=== PATIENT | male | born 1960 | race African-American/Black ===

== ENCOUNTER → 2017-09-01 | Outpatient (CLI) | payer OTHER ==
[~2017-09-01] MED LIST: ASPIR 8181 MG PO; CENTRUM SILVER1 EAC4 PO; COZAAR 25 MG TA25 M2 PO; IBUPROFEN 200200 M1 PO; KLOR-CON 1010 MEQ PO; LANTUS100 UNIT/M SUBQ; LOPRESSOR50 PO; MAXZIDE-25 MG1 EACH PO; NATURAL LUTEIN20 MG PO; NOVOLOG100 UNIT/1 SUBQ; TRADJENTA5 MG; VITAMIN D1000 UNI1 PO
--- NOTE | 2017-09-04 09:29 | SLEEP ---
[address] [address] SLEEP STUDY REPORT Name: NITA MALIK Room: [facility].#: [id number] Admission: Attend Phys: Elisa Rosales RN Discharge: Date of : 58 Report #: [id number] THIS REPORT FOR: //name// CC: Cee Rosales This study has been reviewed in its entirety by a board certified sleep specialist REFERRING PHYSICIAN: Dr. Cee Lyons and FREEDOM Clements. TYPE OF STUDY: CPAP titration. INDICATION: Known obstructive sleep apnea on a sleep study done on 10/2016 with hypersomnia and fatigue in addition to snoring. METHODS: The following parameters were monitored: Frontal, central and occipital EEG; electro-oculogram; submentalis EMG; nasal and oral airflow; anterior tibialis EMG; body position and electrocardiogram. Additionally, thoracic and abdominal movements were recorded by inductance plethysmography. Oxygen saturation was monitored using pulse oximeter. The tracing was scored using 30-second epochs. Hypopneas were scored per the [employer] definition using the 4% desaturation criteria. SLEEP SUMMARY: Total recording time was 488 minutes. Total sleep time was 366 minutes. Sleep efficiency was 75%. SLEEP STAGING: Stage N1 38.9% of total sleep time, stage N2 60.8% of total sleep time, stage N3 none recorded. Stage REM very minimal at 0.3%. The patient was titrated on a CPAP pressure between 5 and 15 cm of water. It was noted at a pressure of 13 and 14 cm of water, the apnea-hypopnea index was 0. The occasional episodes of desaturation were recorded. It was noted her AHI improved on lower CPAP pressure but the CPAP pressure was increased due to snoring. Average heart rate during the study was noted to be bradycardic at 43.4 per minute. No arrhythmias were recorded. Limb movement index was 25.9. RECOMMENDATIONS: 1. Recommend a trial of CPAP therapy at a pressure of 14 cm of water, with close clinical followup and data download. 2. Recommend maintaining [place] [address] SLEEP STUDY REPORT Name: NITA MALIK Room: [facility]#: [id number] Admission: Attend Phys: Elisa Rosales RN Discharge: Date of : 58 Report #: [id number] 3. Avoid alcohol sedatives, hypnotics close to bedtime. 4. Avoid driving or operating machinery while drowsy. <ELECTRONICALLY SIGNED> By: Mercedes Gibson MD 09/04/17 0929 1106 1200Mercedes Gibson MD /nt
== END ==
LOC: M.SLEEPLAB 08-24 20:00
DX: G47.33 Obstructive sleep apnea (adult) (pediatric) (principal); R53.83 Other fatigue; R06.83 Snoring; R40.0 Somnolence

== ENCOUNTER → 2017-10-27 | Outpatient (CLI) | payer OTHER ==
--- NOTE | 2017-10-27 16:58 | 2DMMODE ---
[place] [address] 2 D/M-MODE ECHOCARDIOGRAM Name: NITA MALIK Room: [facility]#: [id number] Admission: 10/27/17 Attend Phys: Ran De Santiago, Discharge: Date of : 58 Date of Service: 10/27/17 1658 Report #: [id number] THIS REPORT FOR: //name// APPROVED REPORT Study performed: 10/27/2017 13:04:37 EXAM: Comprehensive 2D, Doppler, and color-flow Echocardiogram Patient Location: Out-Patient Status: routine BSA: 2.08 HR: 55 bpm BP: 180/82 mmHg Other Information Study Quality: Good Indications Congestive Heart Failure 2D Dimensions LVEF(%): 74.61 (>50%) IVSd: 15.05 (7-11mm) LVOT Diam: 20.40 (18-24mm) LVDd: 47.25 mm PWd: 12.61 (7-11mm) Ascending Ao: 29.40 (22-36mm) LVDs: 26.71 (25-40mm) Aortic Root: 27.82 mm Mederos's LVEF: 74.61 % Volumes Left Atrial Volume (Systole) LA ESV Index: 19.00 mL/m2 Aortic Valve AoV Peak Ronak.: 1.59 m/s AO Peak Gr.: 10.10 mmHg LVOT Max P.99 mmHg AO Mean Gr.: 5.61 mmHg LVOT Mean P.09 mmHg LVOT Max V: 1.00 m/s AO V2 VTI: 35.61 cm LVOT Mean V: 0.66 m/s NONA (VTI): 2.35 cm2 LVOT V1 VTI: 25.65 cm Mitral Valve E/A Ratio: 3.14 MV Decel. Time: 178.19 [place] [address] 2 D/M-MODE ECHOCARDIOGRAM Name: NITA MALIK Room: [facility]#: [id number] Admission: 10/27/17 Attend Phys: Ran De Santiago, Discharge: Date of : 58 Date of Service: 10/27/17 1658 Report #: [id number] MV E Max Ronak.: 1.40 m/s MV PHT: 51.67 ms MVA (PHT): 4.26 cm2 TDI E/Lateral E': 15.56 E/Medial E': 20.00 Medial E' Ronak.: 0.07 m/s Lateral E' Ronak.: 0.09 m/s Pulmonary Valve PV Peak Ronak.: 1.27 m/s PV Peak Gr.: 6.46 mmHg Tricuspid Valve TR Peak Gr.: 36.45 mmHg RVSP: 41.45 mmHg Left Ventricle The left ventricle is normal size. There is normal LV segmental wall motion. Moderate concentric left ventricular hypertrophy. Left ventricular systolic function is normal. The left ventricular ejection fraction is within the normal range. LVEF is 60-65%. The left ventricular diastolic function is normal. Right Ventricle The right ventricle is normal size. The right ventricular systolic function is normal. Atria The left atrium size is normal. The right atrium size is normal. Aortic Valve Mild aortic valve sclerosis. No aortic regurgitation is present. There is no aortic valvular stenosis. Mitral Valve The mitral valve is normal in structure. Mild mitral regurgitation. No evidence of mitral valve stenosis. Tricuspid Valve The tricuspid valve is normal in structure. Mild to moderate tricuspid regurgitation. The RVSP is _41.5 mmHg. Pulmonic Valve The pulmonary valve is normal in structure. Mild [place] [address] 2 D/M-MODE ECHOCARDIOGRAM Name: HELENANITA Room: [facility]#: [id number] Admission: 10/27/17 Attend Phys: Ran De Santiago, Discharge: Date of : 58 Date of Service: 10/27/17 1658 Report #: [id number] Great Vessels The aortic root is normal in size. IVC is dilated and collapses >50% with inspiration. Pericardium There is no pericardial effusion. <Conclusion> The left ventricle is normal size. Moderate concentric left ventricular hypertrophy. Left ventricular systolic function is normal. The left ventricular ejection fraction is within the normal range. LVEF is 60-65%. The left ventricular diastolic function is normal. The right ventricle is normal size. The left atrium size is normal. Mild aortic valve sclerosis. No aortic regurgitation is present. There is no aortic valvular stenosis. The mitral valve is normal in structure. Mild mitral regurgitation. The tricuspid valve is normal in structure. Mild to moderate tricuspid regurgitation. The RVSP is _41.5 mmHg. IVC is dilated and collapses >50% with inspiration. There is no pericardial effusion. There is normal LV segmental wall motion. <ELECTRONICALLY SIGNED> By: Jayce Galvan MD, FACC 10/27/178 57 57 Jayce Galvan MD, FACC /INF
== END ==
LOC: M.CRD 12:50
DX: I50.32 Chronic diastolic (congestive) heart failure (principal); Z88.6 Allergy status to analgesic agent; Z88.8 Allergy status to other drugs, medicaments and biological substances

== ENCOUNTER → 2018-02-25 | Outpatient (CLI) | payer OTHER ==
[2018-02-25 08:10] LABS: ABSOLUTE EOSINOPHILS 0.1 thou/uL (0.0-0.7); ABSOLUTE LYMPHOCYTES 1.1 thou/uL (0.8-5.3); ABSOLUTE MONOCYTES 0.5 thou/uL (0.0-1.2); ABSOLUTE NEUTROPHILS 3.3 thou/uL (1.6-8.1); BASOPHILS 0.6 %; EOSINOPHILS 1.5 %; HEMATOCRIT 38.3 % (42.0-52.0); HEMOGLOBIN 12.6 gm/dL (14.0-18.0); LYMPHOCYTES 22.5 %; MCH 26.6 pg (26.0-34.0); MCHC 32.8 g/dL (28.0-37.0); MCV 81.2 fL (80.0-100.0); MONOCYTES 10.5 %; MPV 8.7 fl. (7.2-11.1); NUCLEATED RBCS 0 /100WBC; PLATELET COUNT* 233 thou/uL (150-400); POLYS 64.9 %; RBC 4.72 mil/uL (4.50-6.00)
[2018-02-25 08:20] LABS: ALBUMIN 2.6 g/dL (3.4-5.0); ALKALINE PHOSPHATASE 85 U/L (46-116); ANION GAP 8 mmol/L (7-16); BUN 26 mg/dL (7-18); CALCIUM 8.2 mg/dL (8.5-10.1); CHLORIDE 106 mmol/L (98-107); CHOLESTEROL 219 mg/dL (<200); CO2 27 mmol/L (21-32); CREATININE 1.1 mg/dL (0.6-1.3); GLUCOSE 107 mg/dL (70-99); HDL CHOLESTEROL 49 mg/dL (>40); LDL CHOLESTEROL 149 mg/dL (<100); POTASSIUM 3.5 mmol/L (3.5-5.1); SGOT 16 U/L (15-37); SGPT 17 U/L (30-65); SODIUM 141 mmol/L (136-145); TC:HDL 4.5 Ratio (Not establshd); TOTAL BILIRUBIN 0.1 mg/dL (<0.1-1.0); TOTAL PROTEIN 6.7 g/dL (6.4-8.2); TRIGLYCERIDE 105 mg/dL (<150); VLDL 21 mg/dL (<40)
[2018-02-25 08:22] LABS: SERUM ASSESSMENT Clear
[2018-02-26 07:06] LABS: GLYCOHEMOGLOBIN (HGB A1C) 13.9 % (4.8-5.6)
== END ==
LOC: M.LAB 07:42 → M.RAD 07:42
PROVIDERS: Family Medicine
DX: E11.29 Type 2 diabetes mellitus with other diabetic kidney complication (principal); I11.0 Hypertensive heart disease with heart failure; I50.32 Chronic diastolic (congestive) heart failure; E78.2 Mixed hyperlipidemia; R80.9 Proteinuria, unspecified; Z79.4 Long term (current) use of insulin

== ENCOUNTER → 2018-09-11 | Outpatient (CLI) | payer OTHER ==
[2018-09-11 10:08] LABS: ALBUMIN 2.9 g/dL (3.4-5.0); ALKALINE PHOSPHATASE 108 U/L (46-116); ANION GAP 8 mmol/L (7-16); BUN 27 mg/dL (7-18); CALCIUM 8.5 mg/dL (8.5-10.1); CHLORIDE 101 mmol/L (98-107); CHOLESTEROL 201 mg/dL (<200); CO2 27 mmol/L (21-32); CREATININE 1.4 mg/dL (0.6-1.3); GLUCOSE 411 mg/dL (70-99); HDL CHOLESTEROL 59 mg/dL (>40); LDL CHOLESTEROL 115 mg/dL (<100); POTASSIUM 4.1 mmol/L (3.5-5.1); SGOT 16 U/L (15-37); SGPT 27 U/L (30-65); SODIUM 136 mmol/L (136-145); TC:HDL 3.4 Ratio (Not establshd); TOTAL BILIRUBIN 0.3 mg/dL (<0.1-1.0); TOTAL PROTEIN 6.4 g/dL (6.4-8.2); TRIGLYCERIDE 138 mg/dL (<150); VLDL 28 mg/dL (<40)
[2018-09-11 10:49] LABS: SERUM ASSESSMENT Clear
[2018-09-12 06:28] LABS: GLYCOHEMOGLOBIN (HGB A1C) 17.2 % (4.8-5.6)
== END ==
LOC: M.LAB 06:59
PROVIDERS: Family Medicine
DX: E11.42 Type 2 diabetes mellitus with diabetic polyneuropathy (principal); E78.2 Mixed hyperlipidemia; Z79.4 Long term (current) use of insulin

== ENCOUNTER → 2018-11-24 | Outpatient (CLI) | payer OTHER ==
--- NOTE | 2018-11-24 13:37 | 2DMMODE ---
[place] [address] 2 D/M-MODE ECHOCARDIOGRAM Name: HELENANITA Room: [facility]#: [id number] Admission: 11/24/18 Attend Phys: Ran De Santiago, Discharge: Date of : 58 Date of Service: 11/24/18 1337 Report #: [id number] THIS REPORT FOR: //name// APPROVED REPORT Study performed: 11/24/2018 07:55:20 EXAM: Comprehensive 2D, Doppler, and color-flow Echocardiogram Patient Location: Out-Patient BSA: 2.09 HR: 58 bpm BP: 149/60 mmHg Other Information Study Quality: Excellent Indications Congestive Heart Failure 2D Dimensions IVSd: 16.73 (7-11mm) LVOT Diam: 20.39 (18-24mm) LVDd: 47.52 mm PWd: 15.32 (7-11mm) Ascending Ao: 31.62 (22-36mm) LVDs: 26.33 (25-40mm) Aortic Root: 28.56 mm Volumes Left Atrial Volume (Systole) LA ESV Index: 27.10 mL/m2 Aortic Valve AoV Peak Ronak.: 1.59 m/s AO Peak Gr.: 10.10 mmHg LVOT Max P.32 mmHg AO Mean Gr.: 5.39 mmHg LVOT Mean P.56 mmHg LVOT Max V: 0.91 m/s AO V2 VTI: 33.95 cm LVOT Mean V: 0.57 m/s NONA (VTI): 2.26 cm2 LVOT V1 VTI: 23.46 cm Mitral Valve E/A Ratio: 3.07 MV Decel. Time: 200.98 ms MV E Max Ronak.: 1.33 m/s MV PHT: 58.28 ms MVA (PHT): 3.77 [place] [address] 2 D/M-MODE ECHOCARDIOGRAM Name: NITA MALIK Room: [facility]#: [id number] Admission: 11/24/18 Attend Phys: Ran De Santiago, Discharge: Date of : 58 Date of Service: 11/24/18 1337 Report #: [id number] TDI E/Lateral E': 19.00 E/Medial E': 22.17 Medial E' Ronak.: 0.06 m/s Lateral E' Ronak.: 0.07 m/s Pulmonary Valve PV Peak Ronak.: 1.06 m/s PV Peak Gr.: 4.50 mmHg Tricuspid Valve RAP Estimate: 5.00 mmHg TR Peak Gr.: 31.88 mmHg RVSP: 36.88 mmHg PA Pressure: 36.88 mmHg Left Ventricle The left ventricle is normal size. There is normal LV segmental wall motion. Moderate concentric left ventricular hypertrophy. Left ventricular systolic function is normal. The left ventricular ejection fraction is within the normal range. LVEF is 65-70%. The left ventricular diastolic function is normal. Right Ventricle The right ventricle is normal size. The right ventricular systolic function is normal. Atria The left atrium size is normal. The right atrium size is normal. Aortic Valve The aortic valve is normal in structure. No aortic regurgitation is present. There is no aortic valvular stenosis. Mitral Valve The mitral valve is normal in structure. Mild mitral regurgitation. No evidence of mitral valve stenosis. Tricuspid Valve The tricuspid valve is normal in structure. Mild to moderate tricuspid regurgitation. estimate pa pressure 45 mm Hg Pulmonic Valve The pulmonary valve is normal in structure. There is no pulmonic valvular regurgitation[place] [address] 2 D/M-MODE ECHOCARDIOGRAM Name: NITA MALIK Room: [facility]#: [id number] Admission: 11/24/18 Attend Phys: Ran De Santiago, Discharge: Date of : 58 Date of Service: 11/24/18 1337 Report #: [id number] The aortic root is normal in size. IVC is normal in size and collapses >50% with inspiration. Pericardium There is no pericardial effusion. <Conclusion> Moderate concentric left ventricular hypertrophy. LVEF is 65-70%. Mild mitral regurgitation. Mild to moderate tricuspid regurgitation. estimate pa pressure 45 mm Hg <ELECTRONICALLY SIGNED> By: Nita Winters MD, [facility] 11/24/18 1337 133 133 Nita Winters MD, [facility] /INF
== END ==
LOC: M.CRD 07:11
DX: I08.1 Rheumatic disorders of both mitral and tricuspid valves (principal)

== ENCOUNTER → 2018-11-25 | Outpatient (CLI) | payer OTHER ==
[2018-11-25 12:00] LABS: CREATININE 1.6 mg/dL (0.6-1.3); POTASSIUM 4.4 mmol/L (3.5-5.1)
== END ==
LOC: M.LAB 11:29
PROVIDERS: Registered Nurse
DX: I50.32 Chronic diastolic (congestive) heart failure (principal)

== ENCOUNTER → 2018-12-08 | Outpatient (CLI) | payer OTHER | LOC: M.ULTRA 07:21 | DX: I10 Essential (primary) hypertension (principal); N28.1 Cyst of kidney, acquired ==

== ENCOUNTER → 2019-01-18 | Outpatient (CLI) | payer OTHER | LOC: M.ULTRA 07:10 | DX: R09.89 Other specified symptoms and signs involving the circulatory and respiratory systems (principal) ==

== ENCOUNTER → 2019-03-02 | Outpatient (CLI) | payer OTHER ==
[2019-03-02 08:52] LABS: ALBUMIN 3.5 g/dL (3.4-5.0); CALCIUM 8.8 mg/dL (8.5-10.1); CREATININE 1.4 mg/dL (0.6-1.3); POTASSIUM 3.6 mmol/L (3.5-5.1); TOTAL BILIRUBIN 0.3 mg/dL (<0.1-1.0); TOTAL PROTEIN 6.9 g/dL (6.4-8.2)
[2019-03-03 03:08] LABS: GLYCOHEMOGLOBIN (HGB A1C) 12.6 % (4.8-5.6)
== END ==
LOC: M.LAB 07:55
PROVIDERS: Family Medicine
DX: E11.319 Type 2 diabetes mellitus with unspecified diabetic retinopathy without macular edema (principal); E11.21 Type 2 diabetes mellitus with diabetic nephropathy

== ENCOUNTER → 2019-09-05 | Outpatient (CLI) | payer OTHER ==
[2019-09-05 07:56] LABS: ALBUMIN 3.2 g/dL (3.4-5.0); ALKALINE PHOSPHATASE 94 U/L (46-116); ANION GAP 9 mmol/L (7-16); BUN 32 mg/dL (7-18); CALCIUM 8.2 mg/dL (8.5-10.1); CHLORIDE 105 mmol/L (98-107); CHOLESTEROL 166 mg/dL (<200); CO2 29 mmol/L (21-32); CREATININE 1.5 mg/dL (0.6-1.3); GLUCOSE 78 mg/dL (70-99); HDL CHOLESTEROL 53 mg/dL (>40); LDL CHOLESTEROL 101 mg/dL (<100); POTASSIUM 3.2 mmol/L (3.5-5.1); SGOT 21 U/L (15-37); SGPT 26 U/L (30-65); SODIUM 143 mmol/L (136-145); TC:HDL 3.1 Ratio (Not establshd); TOTAL BILIRUBIN 0.4 mg/dL (<0.1-1.0); TOTAL PROTEIN 7.2 g/dL (6.4-8.2); TRIGLYCERIDE 64 mg/dL (<150); VLDL 13 mg/dL (<40)
[2019-09-05 08:33] LABS: SERUM ASSESSMENT Clear
[2019-09-05 23:07] LABS: GLYCOHEMOGLOBIN (HGB A1C) 13.1 % (4.8-5.6)
== END ==
LOC: M.LAB 07:23
PROVIDERS: Family Medicine
DX: E11.29 Type 2 diabetes mellitus with other diabetic kidney complication (principal); R80.9 Proteinuria, unspecified; Z79.4 Long term (current) use of insulin

== ENCOUNTER → 2019-09-15 | Outpatient (CLI) | payer OTHER | LOC: M.RAD 15:30 | DX: M50.11 Cervical disc disorder with radiculopathy, high cervical region (principal); M48.02 Spinal stenosis, cervical region; M12.88 Other specific arthropathies, not elsewhere classified, other specified site ==

== ENCOUNTER → 2019-09-19 | Outpatient (CLI) | payer OTHER ==
[2019-09-19 09:01] LABS: CALCIUM 8.7 mg/dL (8.5-10.1); CREATININE 1.3 mg/dL (0.6-1.3); POTASSIUM 3.9 mmol/L (3.5-5.1)
== END ==
LOC: M.LAB 08:39
PROVIDERS: Internal Medicine Cardiovascular Disease
DX: I50.32 Chronic diastolic (congestive) heart failure (principal)

== ENCOUNTER → 2019-09-23 | Outpatient (CLI) | payer OTHER | LOC: M.MRI 09:48 | DX: M50.11 Cervical disc disorder with radiculopathy, high cervical region (principal); M50.31 Other cervical disc degeneration, high cervical region; M48.02 Spinal stenosis, cervical region ==

== ENCOUNTER → 2019-10-11 | Outpatient (CLI) | payer OTHER ==
[~2019-10-11] MED LIST changes: +ASA81BEC PO; +CARVEDILOL12.5 MG PO; +CATAPRES-TTS 20.2 MG TRANSDERM; +HYDRALAZINE 5050 MG PO; +HYDROCODON-ACE1 EAC7 PO; +KLOR-CON 10 ER10 MEQ PO; +LASIX 80 MG TAB80 MG PO; +LEXAPRO 10 MG T10 M1 PO; +LIPITOR 40 MG T40 M1 PO; +MEDROLDOSEPACK PO; +METOLAZONE 5 MG5 MG PO; +NEURONTIN 300300 M1 PO; +NEURONTIN100 MG PO; +NIFEDIPINE20 MG PO; +TERAZOSIN HCL5 MG PO
--- NOTE | 2019-10-13 09:31 | PAINCON ---
[address] [address] PAIN MANAGEMENT CONSULTATION Name: NITA MALIK Dionicio Room: [facility].#: [id number] Admission: 10/11/19 Attend Phys: Campbell Barraza MD Discharge: Date of : 58 Report #: [id number] THIS REPORT FOR: //name// cc: Karen Nelson Linda J. DO ~ THIS REPORT FOR: //name// CC: Karen Barraza DATE OF SERVICE: 10/11/2019 CHIEF COMPLAINT: "Pain in my left arm, which has gotten worse over the last couple of months." HISTORY: The patient is a 59-year-old gentleman who has been referred to the Pain Clinic for evaluation of left arm pain. The patient states that he has noticed a worsening of his pain over the last few months. He does work at the hospital. He does do quite a bit of heavy lifting. Notes that after lifting and throwing some items in the trash and moving them, he started to experience more pain and discomfort involving the left shoulder initially. He then started to experience pain, which radiated down into his hand, into his arm, forearm and down into his fingers. He does note some weakness involving his hand on the left side. He notes that if he extends his arm out as though he was working on a computer using a mouse, there is worsening of the pain. Notes increasing pain when he extends his arm out and is driving. Finds it is very difficult to get into a comfortable position at night. Often times, he lies on his right side and if his head is tilted toward the right and his arm is pulled down toward his waist, he has less pain and discomfort. He has found it quite problematic to get sleep over the last 2 months. He finds that the numbness is quite concerning. He rates it as an 8/10. He has tried nonsteroidal anti-inflammatory medications of ibuprofen. He did not notice a significant improvement in his pain. He has not had surgery. He has not had trauma to the neck area. He has not taken any pain medications. lovastatin and niacin. CURRENT MEDICATIONS: Potassium 10 mEq 3 per day, aspirin 81 mg, carvedilol 2 mg, Lexapro 10 mg, Lasix 80 mg, Neurontin 100 mg t.i.d., hydralazine 100 mg t.i.d., insulin 100 units sliding scale, metolazone 5 mg 2 tablets weekly, nifedipine ER 60 mg b.i.d., Zoloft 50 mg, Cialis 20 mg p.r.n. and terazosin. PAST MEDICAL HISTORY: Anxiety, diabetes, hyperlipidemia, hypertension, myocardial infarction, pneumonia, proteinuria, right bundle-branch block, type 2 diabetes with polyneuropathy, [place] [address] PAIN MANAGEMENT CONSULTATION Name: NITA MALIK Dionicio Room: [facility]#: [id number] Admission: 10/11/19 Attend Phys: Campbell Barraza MD Discharge: Date of : 58 Report #: [id number] PAST SURGICAL HISTORY: Tonsillectomy in 1979. 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 REVIEW OF SYSTEMS: Generally good health, retinopathy, swelling of the feet, joint pain, muscle cramps, and back pain. LABORATORY DATA: MRI of the cervical spine dated 09/23/2019: 1. C3-C4 moderate degenerative disk disease. Moderate broad-based disk bulge with disk osteophyte complex abutting the ventral aspect of the cord causing mild diffuse flattening of the spinal cord and resulting in mild spinal stenosis with the AP diameter of the spinal cord, measuring 9 mm. Moderate left and mild right C4 neural foraminal narrowing secondary to the left disk aspect complex. 2. C4-C5, zrzk-[id number]-[id number] degenerative disk disease. Mild broad-based disk bulge. No spinal stenosis. Mild narrowing of the lateral recess and [id number]-rz-woptyhro C5 neural foraminal narrowing bilaterally. 3. C5-C6, [id number]-[id number] degenerative disk disease. Mild broad-based disk bulge with moderate left paracentral disk protrusion. This results in severe narrowing of the left lateral recess and left C6 neural foraminal narrowing, compression of the left C6 nerve root. Mild right C6 neural foraminal narrowing as well. 4. Mild degenerative disk disease. Mild broad-based disk bulge. No spinal stenosis or neural foraminal narrowing. 5. C7/T1 mild degenerative disk disease. Minimal disk bulge. No spinal stenosis or neural foraminal narrowing. 6. X-ray cervical dated 09/15/2019. Examination of cervical spine 7 views including flexion and extension. Impression: Moderate degenerative spondylosis, especially at C3-C4. There is disk space narrowing and degenerative spondylosis, especially at C3-C4. PAIN CLINIC ASSESSMENT AND PQRS: 1. Osteoarthritis. The patient has some osteoarthritic changes in his neck. He is not being treated for rheumatoid arthritis. 2. Height 5 feet 10 inches, weight 195 pounds, BMI is 28. 3. Vital signs: Blood pressure 196/70, heart rate 67, respiratory rate 16, room air saturation 96%, and temperature is 98.0. 4. Pain intensity 8/10. 5. Fall history: The patient has not fallen in the last 3 months. 6. Blood thinner. The patient is not on a blood thinning medication. 7. Hypertension. The patient is being treated with multiple agents for hypertension. 8. Opioids greater than 6 weeks. The patient is not on an opioid regimen. 9. Risk assessment tool, low for opioid use. 10. Functional assessment tool reviewed. 11. Recreational drug use: The patient denies. 12. Tobacco: [place] [address] PAIN MANAGEMENT CONSULTATION Name: HELENANITA Room: [facility]#: [id number] Admission: 10/11/19 Attend Phys: Campbell Barraza MD Discharge: Date of : 58 Report #: [id number] PHYSICAL EXAMINATION: GENERAL: The patient is a well-developed, well-nourished black male, appears his stated age. He is alert and oriented x 3. His affect is appropriate. Speech is fluent. HEENT: Normocephalic, atraumatic. Extraocular eye muscles intact. Sclerae nonicteric. Mucous membranes are moist. NECK: Without adenopathy or JVD. The patient has pain in the left shoulder with pain that radiates down into his left arm. Left lateral bending causes increased pain. Positive Spurling maneuver. The patient notes some decreased pain with rightward bending of his neck. He complains of pain that is radiating down the shoulder, arm, forearm and down into his fingers. States that his fingers are numb. Radiochemical Technician strength 5-/5 for the left side, 5/5 for the tattoo identifier strength on the right. ABDOMEN: Nontender. EXTREMITIES: Lower extremity muscle strength judged to be 5/5 for the major muscle groups in the lower extremity. IMPRESSION: 1. Cervical radiculopathy involving the left arm. 2. Left ventricular hypertrophy history. 3. Chronic diastolic heart failure, should be those also things that are included. RECOMMENDATIONS: We discussed treatment options with the patient. The patient's MRI was reviewed with him in detail. A model was used to indicate the area of probable pathology. The patient states that he understands. He feels that his pain is quite problematic. It is significantly interrupting his daily living. He is unable to sleep well. Pain is rated as an 8/10. At this point, we have discussed the options. Oftentimes cervical epidural steroid injections can be helpful. We will try the most conservative approach. We have discussed the problems with steroids medication. They can elevate blood sugars. They can also decrease one's immunity. We will increase the patient's gabapentin from 100 mg daily to 300 mg t.i.d. We will also have the patient try a Medrol Dosepak. This may cause some elevation in blood sugar. The patient will monitor his blood sugars and keep him within a narrow range. The patient has been treated for elevated blood pressures. His diastolic was at about 190. We would recommend that the patient continue to monitor this and strive to get a more tighter range. We will have the patient try the conservative approach. Possibility of a cervical epidural steroid injection is an option. We will have to discuss the possible complications of cervical epidural injection. Given the COVID-19 pandemic, careful thought will be placed upon how to proceed whether or not this would be reasonable at this juncture: The patient is a school custodian. If he gets the injection, I would recommend that he not worked in the COVID-19 area at least initially after the injection. [address] [place] [address] PAIN MANAGEMENT CONSULTATION Name: NITA MALIK Room: [facility] BernieChristiano#: [id number] Admission: 10/11/19 Attend Phys: Campbell Barraza MD Discharge: Date of : 58 Report #: [id number] We would like to thank you for letting us participate in his care. We hope he continues to improve. <ELECTRONICALLY SIGNED> By: Campbell Barraza MD 10/13/19 0931 1455 1634N. Rajendra Barraza MD /nt
== END ==
LOC: M.PC 04:21
DX: M79.602 Pain in left arm (principal); M54.12 Radiculopathy, cervical region; I50.32 Chronic diastolic (congestive) heart failure; I10 Essential (primary) hypertension; M51.34 Other intervertebral disc degeneration, thoracic region; M50.33 Other cervical disc degeneration, cervicothoracic region; M48.03 Spinal stenosis, cervicothoracic region; M50.20 Other cervical disc displacement, unspecified cervical region; Z79.899 Other long term (current) drug therapy

== ENCOUNTER → 2019-11-15 | Outpatient (CLI) | payer OTHER ==
[~2019-11-15] MED LIST changes: +NEURONTIN 300M300 M2 PO
== END | disposition home or self-care (01) ==
LOC: M.PC 04:18
DX: M54.12 Radiculopathy, cervical region (principal); G89.29 Other chronic pain; I11.0 Hypertensive heart disease with heart failure; I50.32 Chronic diastolic (congestive) heart failure; E11.42 Type 2 diabetes mellitus with diabetic polyneuropathy; E78.2 Mixed hyperlipidemia; F41.9 Anxiety disorder, unspecified; I25.2 Old myocardial infarction; G47.33 Obstructive sleep apnea (adult) (pediatric); Z98.890 Other specified postprocedural states; Z79.899 Other long term (current) drug therapy; Z87.891 Personal history of nicotine dependence; Z88.8 Allergy status to other drugs, medicaments and biological substances; Z79.4 Long term (current) use of insulin

== ENCOUNTER 2019-11-21 07:12 | Inpatient (IN) | payer OTHER ==
[~2019-11-21] VITALS: Ht 175.3 cm; Wt 86.2 kg
--- NOTE | ~2019-11-21 | CON ---
[address] [address] CONSULTATION Name: NITA MALIK Dionicio Room: [address] ADM IN M.R.#: [id number] Admission: 11/21/19 Attend Phys: Josh Craft MD Discharge: Date of : 58 Report #: [id number] THIS REPORT FOR: //name// cc: Karen Nelson Linda J. DO ~ THIS REPORT FOR: //name// CC: Josh Nelson DATE OF SERVICE: 11/22/2019 NEPHROLOGY CONSULTATION CONSULTING PHYSICIAN: Josh Craft MD REASON FOR NEPHROLOGY CONSULTATION: Acute kidney injury on chronic kidney disease stage 3. REASON FOR ADMISSION: Hyperglycemia and dizziness. HISTORY OF PRESENT ILLNESS: This is a 59-year-old male with past medical history of diabetes type 2 for the last 30 years, which has not been controlled; history of congestive heart failure, but his ejection fraction was 65-70% in 11/2018 with no diastolic dysfunction and moderate pulmonary hypertension, RVSP of 45 mmHg; hypertension; he reports that he does have diabetic retinopathy. 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 Ended up coming to the ER where he was found to have a blood glucose of 1000. His creatinine was 2.1 and his sodium was 119 in the presence of that hyperglycemia. His hemoglobin A1c was found to be 15.5. He was found to be in the hyperosmolar state. There was no evidence of ketoacidosis and he was started on IV fluids. His sugars improved to 300s-400s this morning, sodium within normal range. He also uses Excedrin at home every now and then. He does take heavy doses of Lasix 80 mg twice a day and metolazone 5 mg twice a week and I am not so sure why he does that. He does follow with Dr. Nelson who is his PCP for his blood glucose and other general medical problems. Another problem is that his blood pressure has been running high and it seems like he has chronic hypertension, which is not controlled. He does have to do a better job watching his sodium intake. Renal ultrasound was unremarkable. His creatinine is better today at 1.4. ALLERGIES: NIACIN AND LOVASTATIN. REVIEW OF SYSTEMS: As mentioned in history of present illness, otherwise 10-point review of systems is negative. There are no urinary problems. No [place] [address] CONSULTATION Name: NITA MALIK Room: [address] IN [facility]#: [id number] Admission: 11/21/19 Attend Phys: Josh Craft MD Discharge: Date of : 58 Report #: [id number] FAMILY HISTORY: No history of kidney disease in the family, but there is history of diabetes in the family. HOME MEDICATIONS: Include potassium chloride. He is on aspirin, carvedilol, nifedipine, hydralazine, atorvastatin, terazosin, metolazone 5 mg twice a week, citalopram, Lasix 80 mg twice a day, clonidine, insulin lispro. He is on gabapentin, hydrocodone. PAST MEDICAL AND SURGICAL HISTORY: Includes diabetes, hypertension. He has chronic kidney disease and seems like he has chronic kidney disease stage 3. His creatinine in the past has been 1.3-1.6. History of congestive heart failure, but his ejection fraction was 65-70% in November of last year with moderate pulmonary hypertension with no evidence of diastolic dysfunction, history of tonsillectomy. FAMILY HISTORY: As mentioned above. SOCIAL HISTORY: He lives at home. Does not smoke or drink alcohol or use illicit drugs. PHYSICAL EXAMINATION: VITAL SIGNS: Blood pressure is 204/66. He was afebrile at 36.2, his pulse rate was 50. His respiratory rate was 14. His pulse ox 98%. He was on room air. GENERAL: He is awake and alert and oriented x 3. HEAD AND EYES: Atraumatic, normocephalic. EARS, NOSE, AND THROAT: Normal ears and nose. Mucous membranes are moist. NECK: No JVD. CHEST: Bilateral clear to auscultation. No crackles or wheezing. CARDIOVASCULAR: S1, S2 normal. No murmurs. ABDOMEN: Soft, nondistended, nontender. Bowel sounds are present. LOWER EXTREMITIES: There is no lower extremity edema. NEUROLOGIC: Gross neurological function is intact. PSYCHIATRIC: Mood and affect seem to be normal. LABORATORY DATA: His hemoglobin is 14.3. Sodium is 135, potassium is 4.0, creatinine is 1.4 and hemoglobin A1c was 15.5. Other labs are reviewed. IMAGING: Head MRI, renal ultrasound, head CT and chest x-ray were reviewed. ASSESSMENT: 1. Acute kidney injury on chronic kidney disease stage 3 in the setting of heavy doses of diuretic use at home, Lasix and metolazone; dehydration and hyperosmolar state because of hyperglycemia. Renal imaging was unremarkable. UA showed 1+ protein with trace blood, so no significant hematuria. 2. Uncontrolled diabetes. The patient presented with [place] [address] CONSULTATION Name: NITA MALIK Room: [address]#: [id number] Admission: 11/21/19 Attend Phys: Josh Craft MD Discharge: Date of : 58 Report #: [id number] Hemoglobin A1c 15.5. Primary team is treating that. 3. Uncontrolled hypertension, seems like this is chronic uncontrolled hypertension. He has had multiple blood pressure medications at home. 4. History of hyperlipidemia. 5. Dehydration. 6. History of congestive heart failure, but ejection fraction was normal last year 65-70% with moderate pulmonary hypertension with 45 mmHg RVSP and no diastolic dysfunction and he is on heavy diuretics. He is on big doses of diuretics at home. 7. Dizziness could have been because of high blood pressure as well as high blood glucose. Primary team is investigating that. PLAN: 1. Renal ultrasound was normal. Noted plans for checking renal artery Doppler, which is not a bad idea. 2. I have increased his hydralazine to 100 mg 3 times a day and monitor blood pressure on rest of the blood pressure medications, he has been having bradycardia, should be careful with clonidine. 3. He needs good diabetic control and educated him about that. We will defer to primary team after this and he might need an Endocrinology referral later on. 4. Hold all his diuretics and no need for IV fluids because he is going to eat and drink. 5. Encouraged him to follow a low-sodium diet and avoid NSAIDs because he does take Excedrin at home and encouraged him to follow up with us as an outpatient in about 3-4 weeks after discharge. Thank you for this consultation. We will continue to follow with you. Discussed with the patient and the patient's nurse. By: [id number] Waddell MD /nt
[2019-11-21 07:18] VITALS: BP 184/74
--- NOTE | 2019-11-21 08:16 | NUR ---
DIFFICULT TO OBTAIN IV ACCESS. IV NURSE CALLED FOR ASSIST
[2019-11-21 08:18] LABS: APTT 24.3 Seconds (25.0-31.3); PROTIME 10.5 Seconds (9.20-11.50)
[2019-11-21 08:20] LABS: CALCIUM 8.5 mg/dL (8.5-10.1); CREATININE 2.1 mg/dL (0.6-1.3); POTASSIUM 4.7 mmol/L (3.5-5.1)
[2019-11-21 08:27] LABS: ALBUMIN 3.1 g/dL (3.4-5.0); TOTAL BILIRUBIN 0.4 mg/dL (<0.1-1.0); TOTAL PROTEIN 7.5 g/dL (6.4-8.2)
[2019-11-21 08:34] LABS: ABSOLUTE LYMPHOCYTES 0.8 thou/uL (0.8-5.3); ABSOLUTE MONOCYTES 0.6 thou/uL (0.0-1.2); ABSOLUTE NEUTROPHILS 7.1 thou/uL (1.6-8.1); BASOPHILS 0.1 %; EOSINOPHILS 0.3 %; HEMATOCRIT 46.9 % (42.0-52.0); HEMOGLOBIN 15.3 gm/dL (14.0-18.0); LYMPHOCYTES 9.1 %; MCH 26.7 pg (26.0-34.0); MCHC 32.6 g/dL (28.0-37.0); MCV 81.7 fL (80.0-100.0); MONOCYTES 6.7 %; MPV 9.7 fl. (7.2-11.1); NUCLEATED RBCS 0 /100WBC; PLATELET COUNT* 201 thou/uL (150-400); POLYS 83.8 %; RBC 5.74 mil/uL (4.50-6.00); RDW-CV 13.2 % (10.5-14.5); WBC 8.4 thou/uL (4.0-11.0)
[2019-11-21 08:44] LABS: URINE BILIRUBIN NEGATIVE (Negative); URINE BLOOD TRACE (Negative); URINE CLARITY CLEAR; URINE COLOR YELLOW; URINE GLUCOSE-RANDOM 3+ (Negative); URINE KETONES NEGATIVE (Negative); URINE LEUKOCYTES-REFLEX NEGATIVE (Negative); URINE NITRITE-REFLEX NEGATIVE (Negative); URINE PROTEIN 1+ (Negative); URINE SPECIFIC GRAVITY <= 1.005 (1.005-1.030); URINE UROBILINOGEN 0.2 E.U./dl (0.2-1.0)
[2019-11-21 08:50] LABS: BE -1.8 mmol/L (-2 to +3); PCO2 VENOUS 36.8 mmHg (41.0-51.0); PO2 VENOUS 45.8 mmHg (35.0-45.0)
--- NOTE | 2019-11-21 08:59 | EKG ---
[place] [address] ELECTROCARDIOGRAM REPORT Name: NITA MALIK Room: [facility]#: [id number] Admission: 11/21/19 Attend Phys: Discharge: Date of : 58 Date of Service: 11/21/1946 Report #: [id number] THIS REPORT FOR: //name// [facility] ED Test Date: 2019-11-21 Test Time: 07:45:43 Pat Name: NITA MALIK Department: Room: Gender: M Material Analyst: FELISA : 1960 Requested By: Fadi Munguia Order Number: [id number] MD: Nita Winters Measurements Intervals Bim Rate: 60 P: 7 CT: 140 QRS: -87 QRSD: 145 T: 40 QT: 470 QTc: 470 Interpretive Statements Sinus rhythm with short pr interval Right bundle branch block LVH by voltage Inferior infarct, old Lateral leads are also involved No previous ECG available for comparison Electronically Signed On 11-21-2019 8:57:24 CDT by Nita Winters [email or web address] <ELECTRONICALLY SIGNED> By: Nita Winters MD, [facility] 11/21/19 0857 4 Nita Winters MD, [facility] /EPI
[2019-11-21] MEDS ORDERED: HUMALOG100 UNIT/1 SUBQ (10:07)
--- NOTE | 2019-11-21 11:15 | NUR ---
REPORT GIVEN TO TRIP COELHO IN ICU. PT TRANSFERRED TO ICU VIA CART
[2019-11-21 11:28] VITALS: BP 198/77
[2019-11-21 12:01] VITALS: BP 205/81
[2019-11-21 13:01] VITALS: BP 175/60
[2019-11-21 15:55] LABS: CALCIUM 8.4 mg/dL (8.5-10.1); CREATININE 1.5 mg/dL (0.6-1.3); POTASSIUM 4.1 mmol/L (3.5-5.1)
--- NOTE | 2019-11-21 18:42 | NUR ---
PT PROGRESSED TOWARD GOALS RECEIVED 3700 IN FLUIDS HELPED TO LOWER SUGARS NOON DOSE OF INSULIN GIVEN AT 1015 NEXT DOSE GIVEN AT 1745 20 UNITS BLOOD SUGAR WAS 422
--- NOTE | 2019-11-21 18:46 | CON ---
[address] [address] CONSULTATION Name: NITA MALIK Dionicio Room: [address] [facility]#: [id number] Admission: 11/21/19 Attend Phys: Josh Craft MD Discharge: Date of : 58 Report #: [id number] THIS REPORT FOR: //name// cc: Karen Nelson Linda J. DO ~ THIS REPORT FOR: //name// CC: Josh Nelson DATE OF SERVICE: 11/21/2019 HISTORY OF PRESENT ILLNESS: This is a 59-year-old male patient who was seen by me for ataxia. He indicated it started about 4 days ago. It started spontaneously without any trauma. He does not think it has become any worst, but he has not improved either. His blood sugar is very high and he indicated that there was some trouble with giving the insulin. He is a longstanding diabetic. He denies any prior history of stroke and he does not drink alcohol except occasionally. REVIEW OF SYSTEMS: Indicate that the patient is a longstanding diabetic. His GFR is only 39 and he has renal failure. His blood sugar at one time was more than 1000. His hemoglobin A1c is 13.1. He denies any headache. A 14-point review of system was otherwise unremarkable. PAST MEDICAL HISTORY: Negative for CVA. SOCIAL HISTORY: He drinks alcohol, but only occasionally. PHYSICAL EXAMINATION: Indicate that the patient is alert, responsive, able to follow simple and complex command. His speech, concentration, fund of knowledge and memory is at his baseline. His cranial nerve examination 2-12 looks unremarkable. His strength looks preserved. His position sense looks preserved. His reflexes are diminished as expected. There is no meningeal sign. There is no carotid bruit. Cardiac examination indicate he has a history of congestive heart failure. His blood pressure is 198/77, respiration is 18, pulse is 66 and temperature is 97.1. LABORATORY DATA: White count is normal at 8.[address] was okay. IMPRESSION AND PLAN: This patient is having significant ataxia. He is already scheduled for MRI of the brain. He did have C-spine not too long ago with Dr. Nelson, who is not having much symptom there. We will see what it shows. We will get a TSH done. I discussed all of it with the patient in detail. He wants [place] [address] CONSULTATION Name: HELENANITA Dionicio Room: [address] [place] [facility]#: [id number] Admission: 11/21/19 Attend Phys: Josh Craft MD Discharge: Date of : 58 Report #: [id number] Thank you very much for this referral. <ELECTRONICALLY SIGNED> By: Brenton Ty MD 11/21/19 1846 1220 [id number] Ty MD /connie
[2019-11-21 21:05] VITALS: BP 190/67
[2019-11-21 22:01] VITALS: BP 182/62
[2019-11-22] VITALS (14 sets, daily range): BP systolic 137–219; BP diastolic 49–88
[2019-11-22 02:07] LABS: ESTIMATED AVERAGE GLUCOSE > 398 mg/dL (()); GLYCOHEMOGLOBIN (HGB A1C) > 15.5 % (4.8-5.6)
[2019-11-22 04:19] LABS: ABSOLUTE EOSINOPHILS 0.1 thou/uL (0.0-0.7); ABSOLUTE LYMPHOCYTES 1.1 thou/uL (0.8-5.3); ABSOLUTE MONOCYTES 0.4 thou/uL (0.0-1.2); ABSOLUTE NEUTROPHILS 7.5 thou/uL (1.6-8.1); BASOPHILS 0.2 %; EOSINOPHILS 0.7 %; HEMATOCRIT 42.1 % (42.0-52.0); HEMOGLOBIN 14.3 gm/dL (14.0-18.0); MCH 26.8 pg (26.0-34.0); MCHC 34.1 g/dL (28.0-37.0); MCV 78.7 fL (80.0-100.0); MONOCYTES 4.1 %; MPV 9.6 fl. (7.2-11.1); NUCLEATED RBCS 0 /100WBC; PLATELET COUNT* 201 thou/uL (150-400); RBC 5.35 mil/uL (4.50-6.00); RDW-CV 13.6 % (10.5-14.5); WBC 9.1 thou/uL (4.0-11.0)
[2019-11-22 04:35] LABS: CALCIUM 8.2 mg/dL (8.5-10.1); CREATININE 1.4 mg/dL (0.6-1.3)
--- NOTE | 2019-11-22 05:26 | NUR ---
ASSUMED PATIENT CARE AT 1900. PATIENT ALERT AND ORIENTED TIMES FOUR. MINOR COMPLAINTS OF PAIN NOTED TO NECK. ORAL MEDICATIONS GIVEN. BLOOD GLUCOSE MONITORING MAINTAINED THROUGHOUT THE EVENING. EDUCATION ON DIET CHOICES COMPLETED. IV REMAINS PATENT TO FLUIDS INFUSING. UP AD DAYA. PATIENT REQUESTING TO GO HOME HAMZAH. COOPERATIVE WITH ALL TREATMENTS
--- NOTE | 2019-11-22 15:42 | NUR ---
ASSESSMENT CHARTED. VSS. CLONIDINE PATCH CHANGED AND BP MEDS ADJUST BY MD THIS MORNING. Q6H ACCUCHECKS CHANGED TO ACHS. LONG ACTING INSULIN ADDED BY MD THIS MORNING WELL. PATIENT TO ULTRASOUND AT 1100. TOLERATING MEALS WITHOUT DIFFICULTY. UP AD DAYA IN ROOM. NO REPORTS OF DIZZINESS. REPORT GIVEN TO TELE NURSE AND PATIENT MOVED TO ROOM 223 AT 1520.
--- NOTE | 2019-11-22 15:52 | NUR ---
PT ARRIVED ON UNIT AT 1330 VIA WC W/ NURSING STAFF. REPORT RECEIVED FROM LAQUITA HUMPHREYS IN ICU. THIS RN AGREES W/ PREVIOUS RN'S ASSESSMENT OF PT. PT CURRENTLY SITTING IN RECLINER, SATTING 99% ON RA, TRACING SR W/ A BBB ON THE ESTABLISHMENT GUIDE AND C/O NECK PAIN 12/29 BUT STATES THIS IS NORMAL FOR HIM. PT GOAL IS TO DECREASE BLOOD SUGARS (CURRENTLY IN 300'S) AND KEEP BP W/IN NORMAL LIMITS (CURRENTLY 137/58). PT IS UP AD DAYA, HOURLY ROUNDING OBSERVED, WILL CONTINUE POC.
--- NOTE | 2019-11-22 18:23 | NUR ---
PT HAD CRITICAL HIGH 403 BLOOD SUGAR AT 1654, 20 UNITS INSULIN GIVEN PER SLIDING SCALE AND DR TEMPLE NOTIFIED, NO NEW ORDERS. PT HAD NO C/O DIZZINESS. PT CONTINUES TO BE UP AD DAYA, TRACING SB W/ A BBB ON THE FILM WRITER AND SATTING UPPER 90'S ON RA. MEDS PER MAR, HOURLY ROUNDING OBSERVED, WILL CONTINUE POC.
[2019-11-23] VITALS: BP 158/51
[2019-11-23 04:00] VITALS: BP 178/70
[2019-11-23 08:00] VITALS: BP 123/68
[2019-11-23 12:14] VITALS: BP 123/68
[2019-11-23 12:27] VITALS: BP 117/54
[2019-11-23] MEDS ORDERED: HUMALOG100 UNIT/1 SUBQ (12:53)
[2019-11-23] MEDS ORDERED: LANTUS SUBQ (12:54)
[2019-11-23 12:59] VITALS: BP 123/68
--- NOTE | 2019-11-23 14:36 | NUR ---
ASSUMED CARE OF PATIENT THIS AM AT 0730. PATIENT IS ALERT AND ORIENTED X 4. HE DENIES PAIN AND DISCOMFORT. TELE SHOWS SR WITH A BBB. DR TEMPLE IN TO ROUND AND DISCHARGE ORDERS WERE WRITTEN. PATIENT GIVEN DISCHARGE AND FOLLOWUP INSTRUCTIONS AND EDUCATED ON SLIDING SCALE INSULIN. SALINE LOCK AND TELE MONITOR DISCONTINUED. PATIENT GIVEN CARENOTES AND PRESCRIPTIONS. PATIENT DISCHARGED TO HOME PER W/C WITH BELONGINGS.
== END 2019-11-23 14:20 | disposition home or self-care (01) | DRG 637 ==
LOC: M.ERS 07:12 → M.ICU 08:53 → M.TBA-ER 08:53 → M.ICU 11:17 → M.2W 11-22 15:30
PROVIDERS: Family Medicine; ADMIT Internal Medicine
DX: E11.65 Type 2 diabetes mellitus with hyperglycemia (principal); E11.00 Type 2 diabetes mellitus with hyperosmolarity without nonketotic hyperglycemic-hyperosmolar coma (NKHHC); N17.9 Acute kidney failure, unspecified; E87.1 Hypo-osmolality and hyponatremia; I13.0 Hypertensive heart and chronic kidney disease with heart failure and stage 1 through stage 4 chronic kidney disease, or unspecified chronic kidney disease; I50.9 Heart failure, unspecified; R27.0 Ataxia, unspecified; E11.22 Type 2 diabetes mellitus with diabetic chronic kidney disease; N18.3 Chronic kidney disease, stage 3 (moderate); E86.0 Dehydration; I16.0 Hypertensive urgency; Z88.1 Allergy status to other antibiotic agents; Z88.8 Allergy status to other drugs, medicaments and biological substances; Z83.3 Family history of diabetes mellitus; Z79.82 Long term (current) use of aspirin; I25.2 Old myocardial infarction; Z79.899 Other long term (current) drug therapy

== ENCOUNTER → 2019-11-28 | Outpatient (CLI) | payer OTHER ==
[~2019-11-28] MED LIST changes: +HUMALOG100 UNIT/1 SUBQ; +LANTUS SUBQ
[2019-11-28 10:31] LABS: ALBUMIN 2.9 g/dL (3.4-5.0); CALCIUM 8.4 mg/dL (8.5-10.1); CREATININE 1.5 mg/dL (0.6-1.3); POTASSIUM 4.7 mmol/L (3.5-5.1); TOTAL BILIRUBIN 0.3 mg/dL (<0.1-1.0); TOTAL PROTEIN 6.4 g/dL (6.4-8.2)
== END ==
LOC: M.LAB 09:13
PROVIDERS: ATTEND Family Medicine
DX: E87.1 Hypo-osmolality and hyponatremia (principal); E11.65 Type 2 diabetes mellitus with hyperglycemia

== ENCOUNTER → 2019-12-08 | Outpatient (CLI) | payer OTHER ==
--- NOTE | 2019-12-09 08:03 | PAINCON ---
[address] [address] PAIN MANAGEMENT CONSULTATION Name: NITA MALIK Room: [facility] [employer]#: [id number] Admission: 12/08/19 Attend Phys: Campbell Barraza MD Discharge: Date of : 58 Report #: [id number] THIS REPORT FOR: //name// cc: Karen Nelson Linda J. DO ~ THIS REPORT FOR: //name// CC: Karen Barraza DATE OF SERVICE: 12/08/2019 CHIEF COMPLAINT: "I am getting my blood sugars in control." HISTORY: The patient is a 59-year-old gentleman who has been followed in the Pain Clinic because of cervical radiculopathy. He underwent a cervical epidural steroid injection. He has noted some improvement in his pain on the left side. He still has pain in the left shoulder with pain that radiates down into his arm. He was hospitalized as a result of elevated blood sugars. He states that he was drinking significant amounts of fluid. He was drinking Gatorade. He felt that this exacerbated his sugar levels. He has returned today for renewal of his medications. He finds that the hydrocodone medication is helpful. Feels that gabapentin is helpful. 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 He is concerned that with his health and a number of other comorbidities, this could put his life in jeopardy. ALLERGIES: NIACIN AND LOVASTATIN. CURRENT MEDICATIONS: Potassium 10 mEq, Coreg 12.5 mg, nifedipine 20 mg, hydralazine 50 mg t.i.d., Lipitor 40 mg, gabapentin 300 mg 1 p.o. t.i.d., and hydrocodone 5/325 one p.o. t.i.d. PAIN CLINIC ASSESSMENT AND PQRS: 1. 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 He is not being treated for rheumatoid arthritis. 2. Height 5 feet 10 inches, weight 192 pounds, BMI 28.6. 3. Vital signs: Blood pressure is 152/73, heart rate 57, respiratory rate 16, room air saturation 97%, and temperature 97. 4. Pain intensity 8/10. The patient states his blood sugar this morning was 77. 5. Fall history: The patient has not fallen in the last 3 months. 6. Blood thinner. The patient is not on a blood thinning medication. 7. Hypertension. The patient is being treated for hypertension. 8. Opioids greater than 6 weeks. The [place] [address] PAIN MANAGEMENT CONSULTATION Name: NITA MALIK Room: [facility]#: [id number] Admission: 12/08/19 Attend Phys: Campbell Barraza MD Discharge: Date of : 58 Report #: [id number] source. 9. Risk assessment tool, low for opioid use. 10. Functional assessment tool has been reviewed. 11. Recreational drug use. The patient denies. 12. Tobacco: The patient denies. PHYSICAL EXAMINATION: GENERAL: The patient is a well-developed, well-nourished black male, appears his stated age. He is alert and oriented x 3. His affect is appropriate. Speech is fluent. HEENT: Normocephalic, atraumatic. Extraocular eye muscles intact. Sclerae nonicteric. Mucous membranes are moist. The patient is wearing a mask. MUSCULOSKELETAL: Complains of pain in the left shoulder area. Notes some numbness and tingling, which continues to radiate down into his arm and into his fingers with some weakness. ABDOMEN: Nontender. EXTREMITIES: Right upper extremity unremarkable. Muscle strength 5/5. Lower extremity muscle strength judged to be 5/5 for the major muscle groups in the lower extremity. IMPRESSION: 1. Cervical radiculopathy causing pain and discomfort in the left arm. 2. Status post cervical epidural steroid injection. 3. Left ventricular hypertrophy history. 4. Chronic diastolic heart failure. 5. Diabetes. 6. Hypertension. RECOMMENDATIONS: We discussed treatment options with the patient. At this juncture, we will continue on a conservative course. The patient has been provided medications of hydrocodone as well as gabapentin to help with his pain control. We have had a discussion with the patient regarding his health. We explained the reasons for keeping his blood sugars intact/control. He states that he has a new understanding of the seriousness of his diabetes. 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 He states that he has been asked to go to the second floor. He states that the COVID-19 patient's are in this area. He may be requested to take some of the linen. He does not feel comfortable with this. Given that he has a significant history of comorbidities. He will not likely survive an infection. The patient states he would be willing to work in any other part of the hospital, but declines working in this area. I have asked the patient to follow up with the health nurse. I do not think it is reasonable to have this patient work in the area of the [facility]. Should he get an infection, he will likely . He will follow up in the near future after seeing his primary physician. We will consider another cervical epidural steroid injection. If after 3 injections, he continues to have pain, [place] [address] PAIN MANAGEMENT CONSULTATION Name: NITA MALIK Room: [facility]#: [id number] Admission: 12/08/19 Attend Phys: Campbell Barraza MD Discharge: Date of : 58 Report #: [id number] problematic, I think a surgical consult would be reasonable. We would like to thank you for letting us participate in his care. We hope he continues to improve. <ELECTRONICALLY SIGNED> By: Campbell Barraza MD 12/09/19 0803 [id number]. Rajendra Barraza MD /nt
== END ==
LOC: M.PC 08:00
PROVIDERS: ATTEND Anesthesiology Pain Medicine
DX: M54.12 Radiculopathy, cervical region (principal); I10 Essential (primary) hypertension; E11.9 Type 2 diabetes mellitus without complications; I50.9 Heart failure, unspecified; Z86.79 Personal history of other diseases of the circulatory system; Z79.899 Other long term (current) drug therapy

== ENCOUNTER → 2019-12-20 | Outpatient (CLI) | payer OTHER ==
--- NOTE | 2019-12-20 14:10 | CARDNUC ---
[place] [address] CARDIAC NUCLEAR IMAGING REPORT Name: NITA MALIK Room: [facility]#: [id number] Admission: 12/20/19 Attend Phys: Ran De Santiago, Discharge: Date of : 58 Date of Service: 12/20/19 1409 Report #: [id number] THIS REPORT FOR: cc: Karen Nelson Linda J. DO Liston,Ran Hart MD [facility] ~ APPROVED REPORT Imaging Protocol: Stress Tc-99m/Rest Tc-99m 2 days Study performed: 12/20/2019 09:15:00 Indication: Dyspnea, LVH, Lightheadedness/Dizziness, Chronic Diastolic HF. Patient Location: Out-Patient Stress Tech: Delphine Szymanski Stress Nurse: Yue Brown RN Ht: 5 ft 9 in Wt: 190 lbs BSA: 2.02 m2 BMI: 28.05 Medical History Medical History: Dyspnea, Chronic Diastolic HF, Lightheadedness/dizziness, RBBB, LVH, ERUM, HTN, HLD, DM II, CAD s/p NM, past smoker, Bradycardia. Medications: ASA 81 Mg, Atorvastatin, Carvedilol, Clonidine, Lasix, Hydralazine, Klor-Con, K-Dur, Cialis, Terazosin, Nifedipine, Metolazone. Allergies: Lovastatin, Niacin. Cardiac Risk Factors: Age, Diabetes (insulin), FHX of CAD, HTN, Hyperlipidemia, SOB, Past Smoker, Chronic Diastolic HF, RBBB, LVH, HX NM, Bradycardia. Previous Cardiac Procedures: Myocardial infarction Pretest Chest Pain Characteristics: No chest pain Exercise History: Indeterminate Physical Disabilities: Irregular HR. Meds Held (24 hrs): Carvedilol, Cialis. Resting Data Rest SPECT myocardial perfusion imaging was performed in supine position 30 minutes following the intravenous injection of 11.0 mCi of Tc-99m Sestamibi. Time of rest injection: 09:40 The images were gated to evaluate regional wall motion and calculate [place] [address] CARDIAC NUCLEAR IMAGING REPORT Name: NITA MALIK Room: [facility]#: [id number] Admission: 12/20/19 Attend Phys: Ran De Santiago, Discharge: Date of : 58 Date of Service: 12/20/19 1409 Report #: [id number] Administration Route: IV Administration Site: Right Hand Pharmacologic Stress Pharmacologic stress test was performed by injecting Regadenoson 0.4 mg IV push over 10-15 seconds immediately followed by the intravenous injection of 34.5 mCi of Tc-99m Sestamibi. Time of stress injection: 11:50 Administration Route: IV Administration Site: Right Hand Heart Rate at time of stress injection: 67 bpm. Gated Stress SPECT was performed 45 minutes after stress injection. The images were gated to evaluate regional wall motion and calculate left ventricular ejection fraction. Prone imaging was performed. Stress Test Details Stress Test: Pharmacologic stress testing performed using 0.4 mg of regadenoson per 5 mL given IV over 10 seconds. Reason for pharmacologic stress test: Irregular HR.. HR Max Heart Rate (APMHR): 160 bpm Resting HR: 57 bpm Target HR (85% APMHR): 136 bpm Max HR Achieved: 87 bpm % of APMHR: 54 Recovery HR: 63 bpm BP Resting BP: 164/69 mmHg Max BP: 149/66 mmHg Recovery BP: 178/69 mmHg ECG Resting ECG: Sinus Rhythm, RBBB Stress ECG: Sinus Rhythm, RBBB ST Change: None Arrhythmia: None Recovery ECG: Sinus Rhythm, RBBB Recovery ST Change: None Recovery Arrhythmia: None Clinical Reason for Termination: Completed protocol Stress Symptoms: Dyspnea, Chest heaviness 2/10. Exercise duration: 00 min 00 sec Exercise capacity: 1.00 [place] [address] CARDIAC NUCLEAR IMAGING REPORT Name: NITA MALIK Room: [facility]#: [id number] Admission: 12/20/19 Attend Phys: Ran De Santiago, Discharge: Date of : 58 Date of Service: 12/20/19 1409 Report #: [id number] The patient had some mild chest heaviness with Lexiscan infusion felt to be due to medication effect in light of nuclear medicine findings. Nurse Comments A 59 year old male presented for a sitting Lexiscan r/t VAUGHAN, chronic diastolic HF, LVH, lightheadedness/dizziness, RBBB. Test well tolerated. Recovery unremarkable with PO caffeine. Patient was escorted by staff to Nuclear Medicine for imaging. Patient was stable and stated he felt good at that time. Stress ECG Conclusion The baseline twelve-lead EKG shows sinus rhythm with right bundle branch block and nonspecific ST-T wave abnormalities. EKGs obtained during and post Lexiscan infusion showed continued sinus rhythm with right bundle branch block. No significant ST segment changes were noted when compared to baseline. There were no stress-induced arrhythmias. Study Quality Study: Good Artifact: No artifact Study Data At rest, the left ventricular ejection fraction was 72%.. Post stress, the left ventricular ejection was 68%.. TID = 1.05. Perfusion There is a focal fixed perfusion defect of moderate to severe intensity in the apical inferior wall consistent with prior infarct. No other significant defects were noted to suggest infarct or ischemia. Wall Motion Global LV systolic function appears normal without obvious focal wall motion abnormality. Nuclear Conclusion ECG Findings: negative for ischemia Clinical Findings: negative for ischemia Nuclear Findings: negative for ischemia Exercise Capacity: not assessed Left Ventricular Function: Preserved Perfusion studies suggest prior focal inferoapical infarct with no other areas of infarct or ischemia. Global LV systolic function is [facility] [address] [place] [address] CARDIAC NUCLEAR IMAGING REPORT Name: NITA MALIK Room: [facility]#: [id number] Admission: 12/20/19 Attend Phys: Ran De Santiago, Discharge: Date of : 58 Date of Service: [id number] Report #: [id number] preserved. This is not a high risk study. <Conclusion> The baseline twelve-lead EKG shows sinus rhythm with right bundle branch block and nonspecific ST-T wave abnormalities. EKGs obtained during and post Lexiscan infusion showed continued sinus rhythm with right bundle branch block. No significant ST segment changes were noted when compared to baseline. There were no stress-induced arrhythmias. <ELECTRONICALLY SIGNED> By: Ran De Santiago MD, FACC 12/20/19 1409 08 08 Ran De Santiago MD, FACC /INF
== END ==
LOC: M.NUC 11-15 10:25 → M.CRD 09:00 → M.NUC 09:06
PROVIDERS: ATTEND Internal Medicine Cardiovascular Disease
DX: I11.0 Hypertensive heart disease with heart failure (principal); I50.32 Chronic diastolic (congestive) heart failure; E11.42 Type 2 diabetes mellitus with diabetic polyneuropathy; R06.02 Shortness of breath; R06.00 Dyspnea, unspecified; Z79.4 Long term (current) use of insulin

== ENCOUNTER → 2020-02-07 | Outpatient (CLI) | payer OTHER ==
[~2020-02-07] MED LIST changes: +FLEXERIL PO
--- NOTE | ~2020-02-07 | PAINCON ---
[address] [address] PAIN MANAGEMENT CONSULTATION Name: NITA MALIK [id number] Admission: 02/07/20 Attend Phys: Campbell Barraza MD Discharge: Date of : 58 Report #: [id number] THIS REPORT FOR: //name// cc: Karen Nelson Linda J. DO THIS REPORT FOR: //name// CC: Karen Packer DATE OF SERVICE: 02/07/2020 CHIEF COMPLAINT: "My left shoulder hurts from Thursday evening to Thursday evening." HISTORY: The patient is a 60-year-old gentleman who has been followed in the pain clinic because of cervical radiculopathy. He has undergone cervical epidural steroid injection. He had some benefit. He has now noticed some worsening and recurrence of his pain. He rates the pain today as quite problematic. He is still experiencing some numbness and tingling radiating down his left shoulder and into his arm. He has a new problem. He has been experiencing a toothache since yesterday. He rates his pain overall as a 10/10. He feels that he may have some abscess on going in the tooth. He is going to see a healthcare provider in the very near future. He is off from work tomorrow. He states that he will follow up in regards to the toothache pain. He does have diabetes and is aware that this infection may exacerbate his blood sugar level. He feels that the hydrocodone medication is helpful. He feels that the gabapentin medication is somewhat beneficial. ALLERGIES: NIACIN AND LOVASTATIN. CURRENT MEDICATIONS: Potassium 10 mEq, Coreg 12.5 mg, nifedipine 20 mg, hydralazine 50 mg t.i.d., Lipitor 40 mg, gabapentin 300 mg 1 p.o. t.i.d., hydrocodone 5/325 one p.o. t.i.d. PAIN CLINIC ASSESSMENT/PQRS: 1. The patient has pain that radiates down into his left shoulder. He is not being treated for rheumatoid arthritis. 2. Height 5 feet 10 inch, weight 197 pounds, BMI 32. 3. Vital signs: Blood pressure 192/82, heart rate 60, respiratory rate 16, room air saturation is 97%, temperature 97.0. 4. Pain is 10/10. 5. Fall history: The patient has not fallen in the last 3 months. 6. Blood thinner. The patient is not on a blood thinning medication. 7. Hypertension. The patient is being treated for [place] [address] PAIN MANAGEMENT CONSULTATION Name: HELENANITA Room: [facility]#: [id number] Admission: 02/07/20 Attend Phys: Campbell Barraza MD Discharge: Date of : 58 Report #: [id number] this is somewhat elevated because of his increased pain. 8. Opioids greater than 6 weeks. The patient receives medication from the pain clinic. 9. Risk assessment tool, low for opioid use. 10. Functional assessment tool, reviewed. 11. Recreational drug use. The patient denies. 12. Tobacco: The patient denies. PHYSICAL EXAMINATION: GENERAL: The patient is a well-developed, well-nourished black male, appears his stated age. He is alert and oriented x 3. His affect is appropriate. Speech is fluent. HEENT: Normocephalic, atraumatic. Extraocular eye muscles intact. Sclerae nonicteric. Mucous membranes are moist. The patient is complaining of pain and discomfort because of perceived abscess tooth. HEART: Regular rate. ABDOMEN: Nontender. The patient is wearing a mask. EXTREMITIES: Upper extremity muscle strength judged to be 5/5 on the right and 5- on the left. IMPRESSION: 1. Cervical radiculopathy causing discomfort in the left arm. 2. Status post cervical epidural steroid injection with elevated blood sugars afterwards. 3. Left ventricular hypertrophy history. 4. Chronic diastolic heart failure. 5. Diabetes. 6. Hypertension. 7. Abscessed tooth. RECOMMENDATIONS: We discussed treatment options with the patient. We explained to him the problems with his tooth. If truly his abscess and there is bacteria causing bacteremia, he could get quite septic. Given his diabetes, he could have elevated blood sugars as a result of this. We stressed to the patient the importance of having this attended to as early as possible. We will continue with his hydrocodone 5/325 one p.o. t.i.d. We will continue with gabapentin. We will consider increasing the gabapentin as he is able to tolerate it. The patient is scheduled to take gabapentin 300 mg a.m., 300 mg mid-day, and 600 mg at bedtime. We will work towards increasing it to a level of 1800, notes its efficacy. [facility] [address] [place] [address] PAIN MANAGEMENT CONSULTATION Name: NITA MALIK [facility] [id number] Admission: 02/07/20 Attend Phys: Campbell Barraza MD Discharge: Date of : 58 Report #: [id number] We would like to thank you for letting us participate in his care. We hope he continues to improve. By: 0911 [id number]. Rajendra Barraza MD /KELI
== END ==
LOC: M.PC 08:10
PROVIDERS: ATTEND Anesthesiology Pain Medicine
DX: I11.0 Hypertensive heart disease with heart failure (principal); I50.32 Chronic diastolic (congestive) heart failure; E11.9 Type 2 diabetes mellitus without complications; M54.12 Radiculopathy, cervical region; K04.7 Periapical abscess without sinus

== ENCOUNTER → 2020-03-06 | Outpatient (CLI) | payer OTHER ==
--- NOTE | 2020-03-07 09:50 | PAINCON ---
[address] [address] PAIN MANAGEMENT CONSULTATION Name: NITA MALIK [id number] Admission: 03/06/20 Attend Phys: Campbell Barraza MD Discharge: Date of : 58 Report #: [id number] THIS REPORT FOR: //name// cc: Karen Nelson Linda J. DO ~ THIS REPORT FOR: //name// CC: Karen Barraza DATE OF SERVICE: 03/06/2020 CHIEF COMPLAINT: "My shoulder still hurts and I am thinking about seeing a surgeon." HISTORY: The patient is a 60-year-old gentleman who has been followed in the pain clinic. He has been suffering from cervical radiculopathy. It involves his left arm. He has undergone epidural steroid injection. He did note significant elevations of his blood sugars into the 100s. He has continued to have some spasms and pain that radiates down into his arm. He has not lost function. 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 He rates his pain as about 50% improved with use of his medications. He feels that the gabapentin medication helps the discomfort that he has been experiencing in his feet. He would like to visit the surgeon. Possibility of a surgical intervention is an option. He continues to maintain his blood sugars. He does have diabetes. ALLERGIES: NIACIN AND LOVASTATIN. CURRENT MEDICATIONS: Potassium 10 mEq, Coreg 12.5 mg, nifedipine 20 mg, hydralazine 50 mg t.i.d., Lipitor 40 mg, gabapentin 300 mg a.m., 300 mg midday, and 200 mg at bedtime, hydrocodone 5 mg 1 p.o. q.i.d., Flexeril 10 mg 1 p.o. t.i.d. for muscle spasms. PAIN CLINIC ASSESSMENT AND PQRS: 1. The patient has some pain that radiates down to his left shoulder. He is not being treated for rheumatoid arthritis. 2. Height 5 feet 10 inch, weight 201 pounds, BMI is 29. 3. Vital signs: Blood pressure is 185/75, heart rate 56, respiratory rate 18, room air saturation 97%, temperature 97.9. 4. Pain intensity 8-9/10. 5. Fall history: The patient has not fallen in the last 3 months. 6. Blood thinner. The patient is not on a blood thinning medication. 7. Opioids. The patient received medication from one source the pain clinic. 8. Risk assessment tool, low for opioid use. 9. Functional [place] [address] PAIN MANAGEMENT CONSULTATION Name: HELENANITA Room: [facility]#: [id number] Admission: 03/06/20 Attend Phys: Campbell Barraza MD Discharge: Date of : 58 Report #: [id number] 10. Recreational drug use. The patient denies. 11. Tobacco: The patient denies. PHYSICAL EXAMINATION: GENERAL: The patient is a well-developed, well-nourished, black male. He appears his stated age. He is alert and oriented x 3. His affect is appropriate. Speech is fluent. HEENT: Normocephalic, atraumatic. Extraocular eye muscles intact. Sclerae nonicteric. Mucous membranes are moist. The patient is wearing a facial covering. LUNGS: Clear. HEART: Regular rate. ABDOMEN: Nontender. EXTREMITIES: Upper extremity muscle strength on the left judged to be 5-/5 for the major muscle groups in the upper extremity. Muscle strength on the right is 5/5 for the major muscle groups in the right. The patient notes some pain down into the left arm down and it is focally located in his shoulder and some pain down into his arm. IMPRESSION: 1. Cervical radiculopathy causing discomfort in the left arm. 2. Status post cervical epidural steroid injection with elevated blood sugars afterwards. 3. Left ventricular hypertrophy. 4. Chronic diastolic heart failure. 5. Diabetes. 6. Hypertension. 7. Improvement -- abscessed tooth. RECOMMENDATIONS: We discussed treatment options with the patient. Risks and benefits of an epidural steroid injection were again discussed. He did have some elevated blood sugars. Possibility of an injection in the future is possible. We would recommend the patient tightly maintain control of his blood sugars. He is at this juncture feeling that the pain continues to be quite problematic. It makes his job quite difficult. He is going to see a surgeon in the near future to be informed of the options. A script for his medications has been written. The patient will continue with hydrocodone 5 mg 1 p.o. q.i.d. He will also continue with gabapentin 2 pills for a total of 600 mg a.m., 300 mg midday and 600 mg at bedtime. Hopefully, this will continue to help with his pain and discomfort. He will also call us if he has any concerns. [address] [address] PAIN MANAGEMENT CONSULTATION Name: NITA MALIK Room: [facility].#: [id number] Admission: 03/06/20 Attend Phys: Campbell Barraza MD Discharge: Date of : 58 Report #: [id number] We would like to thank you for letting us participate in his care. We hope he continues to improve. <ELECTRONICALLY SIGNED> By: Campbell Barraza MD 03/07/20 0950 [id number] 1540N. Rajendra Barraza MD /nt
== END ==
LOC: M.PC 07:18
PROVIDERS: ATTEND Anesthesiology Pain Medicine
DX: M25.512 Pain in left shoulder (principal)

== ENCOUNTER → 2020-04-03 | Outpatient (CLI) | payer OTHER ==
[~2020-04-03] MED LIST changes: +AMOXICILLIN 50500 MG PO
--- NOTE | 2020-04-18 15:45 | PAINCON ---
[address] [address] PAIN MANAGEMENT CONSULTATION Name: NITA MALIK [facility]undoChristianoRa.#: [id number] Admission: 04/03/20 Attend Phys: Campbell Barraza MD Discharge: Date of : 58 Report #: [id number] THIS REPORT FOR: //name// cc: Karen Nelson Linda J. DO ~ CC: Karen Barraza DATE OF SERVICE: 04/03/2020 CHIEF COMPLAINT: Here for medication renewal and continued left shoulder pain. HISTORY: The patient is a 60-year-old gentleman who has been followed in the pain clinic because of cervical radicular pain. He has undergone cervical epidural steroid injection. He did note some elevated blood sugars at that time. His pain in the shoulders has been problematic over the past year. Notes that this does cause him some discomfort and problems when doing his job. 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 He continues to have spasms that radiate into his arm. He rates his pain as an 8/10 at this juncture. Notes that his left arm continues to "go numb" at times. He has continued to use hydrocodone, Flexeril and gabapentin to help quell the pain. Overall, he feels that this provides about 70% improvement in his discomfort. Activities of the things that worsen his pain and discomfort. He has returned today for renewal of his medications. ALLERGIES: NIACIN, LOVASTATIN. CURRENT MEDICATIONS: Potassium 10 mEq, Coreg 12.5 mg, nifedipine 20 mg, hydralazine 50 mg t.i.d., Lipitor 40 mg, gabapentin 300 mg a.m., 300 mg midday and 200 mg at bedtime, hydrocodone 5 mg 1 p.o. q.i.d., Flexeril 10 mg 1 p.o. t.i.d. with muscle spasms. PAIN CLINIC ASSESSMENT AND PQRS: 1. The patient has some pain that radiates down to his shoulder. He is not being treated for rheumatoid arthritis. 2. Height 5 feet 10 inches, weight 203 pounds, BMI is 30. 3. Vital Signs: Blood pressure is 221/85, heart rate 53, respiratory rate 16, room air saturation 98%. 4. Pain intensity is 8/10. 5. Fall history. The patient has not fallen in the last 3 months. 6. Blood thinner. The patient is not on a blood thinning medication. 7. Opioids. The patient received medication from one source, the pain clinic. 8. Risk assessment tool, low for opioid use. 9. Functional assessment tool, reviewed. 10. Recreational drug use. The patient denies. 11. [place] [address] PAIN MANAGEMENT CONSULTATION Name: NITA MALIK Room: [facility]#: [id number] Admission: 04/03/20 Attend Phys: Campbell Barraza MD Discharge: Date of : 58 Report #: [id number] PHYSICAL EXAMINATION: GENERAL: The patient is a well-developed, well-nourished, black male. Appears his stated age. He is alert and oriented x 3. His affect is appropriate. Speech is fluent. HEENT: Normocephalic, atraumatic. Extraocular eye muscles intact. Sclerae nonicteric. The patient has facial covering. HEART: Regular rate. LUNGS: Clear. ABDOMEN: Nontender. MUSCULOSKELETAL: Upper extremity muscle strength judged to be 5-/5 on the left side with pain radiating down into his arm. Muscle strength on the right side is 5/5. The patient has some discomfort in the left shoulder area as well. IMPRESSION: 1. Cervical radiculopathy causing discomfort in the left arm. 2. Elevated blood pressures. 3. Status post cervical epidural steroid injection with elevated blood sugars afterwards. 4. Left ventricular hypertrophy. 5. Chronic diastolic heart failure. 6. Diabetes. 7. Hypertension. RECOMMENDATIONS: We discussed treatment options with the patient. The patient's blood pressure is extremely elevated today. He states that he has not taken his medication. We would recommend that he will take his blood pressure medication. We recommend that he continues to take his medication on a daily basis to have some data points to present to his primary care physician. We explained to him the seriousness of elevated blood pressures. Given his heart problems, he can have worsening heart failure as well as a stroke or a myocardial infarct. He states that he would. He is also going to monitor his blood sugars. A script for his medications of Flexeril 10 mg 1 p.o. t.i.d. has been provided. The patient will also continue with gabapentin 300 mg 1 tablet a.m., 1 midday and 2 tablets at bedtime. The patient will continue with hydrocodone 5 mg 1 p.o. 4 times daily. We would like to thank you for letting us participate in his care. We hope he continues to improve. <ELECTRONICALLY SIGNED> By: Campbell Barraza MD 04/18/20 1545 0835 2131N. Rajendra Barraza MD /PMT
== END ==
LOC: M.PC 07:31
PROVIDERS: ATTEND Anesthesiology Pain Medicine
DX: I11.0 Hypertensive heart disease with heart failure (principal); I50.32 Chronic diastolic (congestive) heart failure; E78.5 Hyperlipidemia, unspecified; E11.9 Type 2 diabetes mellitus without complications; M54.12 Radiculopathy, cervical region

== ENCOUNTER 2020-04-13 20:22 | Emergency (ER) | payer OTHER ==
[~2020-04-13] VITALS: Ht 175.3 cm; Wt 96.2 kg
[~2020-04-13 20:22] MED LIST changes: -AMOXICILLIN 50500 MG PO
[2020-04-13 21:31] LABS: ABSOLUTE EOSINOPHILS 0.1 thou/uL (0.0-0.7); ABSOLUTE LYMPHOCYTES 0.7 thou/uL (0.8-5.3); ABSOLUTE MONOCYTES 1.2 thou/uL (0.0-1.2); ABSOLUTE NEUTROPHILS 9.7 thou/uL (1.6-8.1); BASOPHILS 0.2 %; EOSINOPHILS 0.7 %; HEMATOCRIT 31.7 % (42.0-52.0); HEMOGLOBIN 10.3 gm/dL (14.0-18.0); LYMPHOCYTES 5.6 %; MCH 26.3 pg (26.0-34.0); MCHC 32.6 g/dL (28.0-37.0); MCV 80.5 fL (80.0-100.0); MONOCYTES 10.2 %; MPV 9.3 fl. (7.2-11.1); NUCLEATED RBCS 0 /100WBC; PLATELET COUNT* 223 thou/uL (150-400); POLYS 83.3 %; RBC 3.94 mil/uL (4.50-6.00); RDW-CV 13.3 % (10.5-14.5); WBC 11.7 thou/uL (4.0-11.0)
[2020-04-13 21:46] LABS: CALCIUM 8.9 mg/dL (8.5-10.1); CREATININE 2.3 mg/dL (0.6-1.3); POTASSIUM 4.4 mmol/L (3.5-5.1)
[2020-04-13 21:48] LABS: ALBUMIN 2.5 g/dL (3.4-5.0); TOTAL BILIRUBIN 0.8 mg/dL (<0.1-1.0); TOTAL PROTEIN 7.2 g/dL (6.4-8.2)
[2020-04-13] MEDS ORDERED: AMOXICILLIN 50500 MG PO (22:42)
[2020-04-13 22:46] VITALS: BP 125/70
== END 2020-04-13 22:47 | disposition home or self-care (01) ==
LOC: M.ERS 20:22
PROVIDERS: Family Medicine
DX: J32.9 Chronic sinusitis, unspecified (principal); E11.65 Type 2 diabetes mellitus with hyperglycemia; I25.2 Old myocardial infarction; I50.9 Heart failure, unspecified; I11.0 Hypertensive heart disease with heart failure; Z79.899 Other long term (current) drug therapy; Z79.4 Long term (current) use of insulin; Z88.8 Allergy status to other drugs, medicaments and biological substances; Z88.1 Allergy status to other antibiotic agents

== ENCOUNTER → 2020-05-01 | Outpatient (CLI) | payer OTHER ==
[~2020-05-01] MED LIST changes: +AMOXICILLIN 50500 MG PO
--- NOTE | 2020-05-02 13:58 | PAINCON ---
[address] [address] PAIN MANAGEMENT CONSULTATION Name: NITA MALIK Room: [facility].#: [id number] Admission: 05/01/20 Attend Phys: Campbell Barraza MD Discharge: Date of : 58 Report #: [id number] THIS REPORT FOR: //name// cc: Karen Nelson Linda J. DO ~ CC: Karen Barraza DATE OF SERVICE: 05/01/2020 CHIEF COMPLAINT: "My arm is a little better. I was really sick from a sinus infection. HISTORY: The patient is a 60-year-old gentleman who has been followed in the pain clinic. He suffers from cervical radiculopathy. He has undergone cervical epidural steroid injections. At this juncture, he has noticed some slight improvement in his cervical pain. When his arm hangs down in a dependent position, he has less numbness and tingling. He still has some pain and discomfort in the shoulder area. He was sick a few days ago. He was plagued by a sinus infection. He missed 8 days of work because of it. He did have a nosebleed on 4 days. Overall, he feels that he is turning the corner and feeling a bit better. He feels that his medications are helpful. He has returned today with hopes of having his medications renewed. He has returned to work. He is still battling with his elevated blood pressures. He feels that his pain is about 80-90% improved with his current medical regimen. He has recently completed an antibiotic treatment course. ALLERGIES: NIACIN, LOVASTATIN. CURRENT MEDICATIONS: Potassium 10 mEq, Coreg 12.5 mg, nifedipine 20 mg, hydralazine 50 mg t.i.d., Lipitor 40 mg, gabapentin 300 mg t.i.d., Flexeril 10 mg 1 p.o. t.i.d. with muscle spasms. PAIN CLINIC ASSESSMENT/PQRS: 1. The patient has some pain and discomfort that radiates down into his shoulder. He is not being treated for rheumatoid arthritis. 2. Height 5 feet 10 inches, weight 205 pounds, BMI is 29. 3. Vital signs: Blood pressure 193/62, heart rate 54, respiratory rate 16, room air saturation 98%, temperature 97.9. 4. Pain intensity: 7-8/10. 5. Fall history: The patient has not fallen in the last 3 months. 6. Blood thinner: The patient is not on a blood thinning medication. 7. Opioids: The patient receives medication from [facility]. 8. Risk assessment tool: Low for opioid use. 9. Functional assessment tool: Reviewed. 10. Recreational drug use: [place] [address] PAIN MANAGEMENT CONSULTATION Name: NITA MALIK Room: [facility]#: [id number] Admission: 05/01/20 Attend Phys: Campbell Barraza MD Discharge: Date of : 58 Report #: [id number] 11. Tobacco: The patient denies. PHYSICAL EXAMINATION: GENERAL: The patient is a well-developed, well-nourished black male, appears his stated age. He is alert and oriented x 3. His affect is appropriate. Speech is fluent. HEENT: Normocephalic, atraumatic. Extraocular eye muscles intact. Sclerae nonicteric. The patient has a facial covering. NECK: The patient complains of some pain and discomfort involving the upper shoulder area with pain down into the left arm. Has less discomfort with hanging his arm in a dependent position. HEART: Regular rate. LUNGS: Clear. ABDOMEN: Nontender. MUSCULOSKELETAL: Muscle strength in the upper extremity judged to be 5-/5 on the left and involving pain in his arm. Muscle strength in the right is 5/5. The patient has some discomfort in his left shoulder area. IMPRESSION: 1. Cervical radiculopathy causing discomfort in the left arm. 2. Elevated blood pressures. 3. Status post cervical epidural steroid injection with elevated blood sugars. 4. Left ventricular hypertrophy. 5. Chronic diastolic heart failure. 6. Diabetes. 7. Hypertension. 8. Resolution of sinus infection - The patient was off for 8 days of work. RECOMMENDATIONS: We discussed treatment options with the patient. At this juncture, we will continue with his medications. He will continue with the gabapentin 300 mg 1 p.o. t.i.d. He will continue with hydrocodone 5 mg 1 p.o. q. 4-6 hours p.r.n. The patient will also continue with Flexeril 10 mg 1 p.o. t.i.d. as needed for muscle spasms. We have encouraged the patient to keep a diary of his data points regarding his blood pressures, so he could provide them to his primary physician. Systolic blood pressure is 190 today. He states that he had not taken his blood pressure medication and that he is going to take it. We would like to thank you for letting us participate in his care. We hope he continues to improve. A script for his medications has been forwarded to his pharmacy. <ELECTRONICALLY SIGNED> By: Campbell Barraza MD 05/02/20 1358 [id number] 2050N. MD KOLE Hopkins
== END ==
LOC: M.PC 07:22
PROVIDERS: ATTEND Anesthesiology Pain Medicine
DX: M54.12 Radiculopathy, cervical region (principal); J32.9 Chronic sinusitis, unspecified

== ENCOUNTER → 2020-05-14 | Outpatient (CLI) | payer OTHER ==
[2020-05-14 08:40] LABS: ALBUMIN 3.5 g/dL (3.4-5.0); ALKALINE PHOSPHATASE 90 U/L (46-116); ANION GAP 8 mmol/L (7-16); BUN 41 mg/dL (7-18); CALCIUM 8.5 mg/dL (8.5-10.1); CHLORIDE 102 mmol/L (98-107); CHOLESTEROL 175 mg/dL (<200); CO2 28 mmol/L (21-32); CREATININE 1.6 mg/dL (0.6-1.3); GLUCOSE 378 mg/dL (70-99); HDL CHOLESTEROL 55 mg/dL (>40); LDL CHOLESTEROL 98 mg/dL (<100); POTASSIUM 4.3 mmol/L (3.5-5.1); SGOT 19 U/L (15-37); SGPT 26 U/L (30-65); SODIUM 138 mmol/L (136-145); TC:HDL 3.2 Ratio (Not establshd); TOTAL BILIRUBIN 0.3 mg/dL (<0.1-1.0); TOTAL PROTEIN 6.8 g/dL (6.4-8.2); TRIGLYCERIDE 111 mg/dL (<150); VLDL 22 mg/dL (<40)
[2020-05-14 08:41] LABS: SERUM ASSESSMENT Clear
[2020-05-16 13:11] LABS: GLYCOHEMOGLOBIN (HGB A1C) 12.9
== END ==
LOC: M.LAB 07:14
PROVIDERS: ATTEND Family Medicine
DX: E11.29 Type 2 diabetes mellitus with other diabetic kidney complication (principal); R80.9 Proteinuria, unspecified; Z79.4 Long term (current) use of insulin

== ENCOUNTER → 2020-05-29 | Outpatient (CLI) | payer OTHER ==
[~2020-05-29] MED LIST changes: +MOBIC15 MG PO
== END ==
LOC: M.PC 07:23
PROVIDERS: ATTEND Anesthesiology Pain Medicine
DX: M54.12 Radiculopathy, cervical region (principal); I10 Essential (primary) hypertension; E11.9 Type 2 diabetes mellitus without complications; I51.7 Cardiomegaly; I50.32 Chronic diastolic (congestive) heart failure; J01.90 Acute sinusitis, unspecified; R20.2 Paresthesia of skin; R53.1 Weakness

== ENCOUNTER → 2020-06-26 | Outpatient (CLI) | payer OTHER | LOC: M.PC 07:32 | PROVIDERS: ATTEND Anesthesiology Pain Medicine | DX: M54.12 Radiculopathy, cervical region (principal); R20.2 Paresthesia of skin; R53.1 Weakness; I10 Essential (primary) hypertension; I51.7 Cardiomegaly; I50.32 Chronic diastolic (congestive) heart failure; E11.9 Type 2 diabetes mellitus without complications; J01.90 Acute sinusitis, unspecified; Z88.8 Allergy status to other drugs, medicaments and biological substances; Z79.899 Other long term (current) drug therapy ==

== ENCOUNTER → 2020-07-24 | Outpatient (CLI) | payer OTHER | LOC: M.PC 08:07 | PROVIDERS: ATTEND Anesthesiology Pain Medicine | DX: M54.2 Cervicalgia (principal); R20.2 Paresthesia of skin; R53.83 Other fatigue; I10 Essential (primary) hypertension; E11.9 Type 2 diabetes mellitus without complications; I51.7 Cardiomegaly; I50.32 Chronic diastolic (congestive) heart failure; Z88.8 Allergy status to other drugs, medicaments and biological substances; Z79.899 Other long term (current) drug therapy ==

== ENCOUNTER → 2020-08-01 | Outpatient (CLI) | payer OTHER ==
[2020-08-01 21:06] LABS: CREATININE CLEARANCE 29 mL/min (97-137); URINE CREATININE 72.7 mg/dL (Not Estab.); URINE CREATININE (GM/24H) 945 mg/24 hr (1000-2000); URINE PROTEIN 229 mg/24 hr (30-150); URINE PROTEIN (MG/DL) 17.6 mg/dL (Not Estab.)
== END ==
LOC: M.LAB 07:45
PROVIDERS: ATTEND Internal Medicine Nephrology
DX: N18.31 Chronic kidney disease, stage 3a (principal)

== ENCOUNTER → 2020-08-21 | Outpatient (CLI) | payer OTHER | LOC: M.PC 08:08 | PROVIDERS: ATTEND Anesthesiology Pain Medicine | DX: M54.12 Radiculopathy, cervical region (principal); R20.2 Paresthesia of skin; R53.1 Weakness; R03.0 Elevated blood-pressure reading, without diagnosis of hypertension; I51.7 Cardiomegaly; I11.0 Hypertensive heart disease with heart failure; I50.32 Chronic diastolic (congestive) heart failure; E11.9 Type 2 diabetes mellitus without complications; J32.9 Chronic sinusitis, unspecified; Z88.8 Allergy status to other drugs, medicaments and biological substances; Z79.899 Other long term (current) drug therapy ==

== ENCOUNTER → 2020-08-30 | Outpatient (CLI) | payer OTHER ==
[2020-08-01 21:06] LABS: CREATININE CLEARANCE 29 mL/min (97-137); URINE CREATININE 72.7 mg/dL (Not Estab.); URINE CREATININE (GM/24H) 945 mg/24 hr (1000-2000); URINE PROTEIN 229 mg/24 hr (30-150); URINE PROTEIN (MG/DL) 17.6 mg/dL (Not Estab.)
[2020-08-30 11:01] LABS: ALBUMIN 3.7 g/dL (3.4-5.0); CREATININE 2.2 mg/dL (0.6-1.3); POTASSIUM 3.6 mmol/L (3.5-5.1); TOTAL BILIRUBIN 0.4 mg/dL (<0.1-1.0); TOTAL PROTEIN 7.7 g/dL (6.4-8.2)
== END ==
LOC: M.LAB 10:02
PROVIDERS: ATTEND Internal Medicine Nephrology
DX: E11.22 Type 2 diabetes mellitus with diabetic chronic kidney disease (principal); N18.31 Chronic kidney disease, stage 3a

== ENCOUNTER → 2020-09-11 | Outpatient (CLI) | payer OTHER ==
[2020-09-12 04:06] LABS: GLYCOHEMOGLOBIN (HGB A1C) 14.3 % (4.8-5.6)
== END ==
LOC: M.LAB 07:21
PROVIDERS: ATTEND Family Medicine
DX: E11.42 Type 2 diabetes mellitus with diabetic polyneuropathy (principal); Z79.4 Long term (current) use of insulin

== ENCOUNTER → 2020-10-17 | Outpatient (CLI) | payer OTHER ==
--- NOTE | 2020-10-18 11:46 | 2DMMODE ---
[place] [address] 2 D/M-MODE ECHOCARDIOGRAM Name: NITA MALIK Room: [facility]#: [id number] Admission: 10/17/20 Attend Phys: Ran De Santiago, Discharge: Date of : 58 Date of Service: 10/18/20 1146 Report #: [id number] THIS REPORT FOR: cc: Karen Nelson Linda J. DO Liston, Michael J. MD [facility] ~ ADDENDUM APPROVED REPORT Study performed: 10/17/2020 08:17:30 EXAM: Comprehensive 2D, Doppler, and color-flow Echocardiogram Patient Location: Out-Patient BSA: 2.07 HR: 60 bpm BP: 152/62 mmHg Other Information Study Quality: Excellent Indications Hypertension/HDD 2D Dimensions IVSd: 19.94 (7-11mm) LVOT Diam: 20.57 (18-24mm) LVDd: 43.81 mm PWd: 14.47 (7-11mm) Ascending Ao: 30.02 (22-36mm) LVDs: 20.53 (25-40mm) Aortic Root: 33.67 mm Volumes Left Atrial Volume (Systole) LA ESV Index: 23.10 mL/m2 Aortic Valve AoV Peak Ronak.: 1.63 m/s AO Peak Gr.: 10.65 mmHg LVOT Max P.22 mmHg AO Mean Gr.: 5.68 mmHg LVOT Mean P.85 mmHg LVOT Max V: 1.03 m/s AO V2 VTI: 34.52 cm LVOT Mean V: 0.61 m/s NONA (VTI): 2.48 cm2 LVOT V1 VTI: 25.80 cm Mitral Valve E/A Ratio: 2.72 [place] [address] 2 D/M-MODE ECHOCARDIOGRAM Name: NITA MALIK Room: [facility]#: [id number] Admission: 10/17/20 Attend Phys: Ran De Santiago, Discharge: Date of : 58 Date of Service: 10/18/20 1146 Report #: [id number] MV Decel. Time: 223.77 ms MV E Max Ronak.: 1.19 m/s MV PHT: 64.89 ms MVA (PHT): 3.39 cm2 TDI E/Lateral E': 17.00 E/Medial E': 23.80 Medial E' Ronak.: 0.05 m/s Lateral E' Ronak.: 0.07 m/s Pulmonary Valve PV Peak Ronak.: 1.08 m/s PV Peak Gr.: 4.63 mmHg Tricuspid Valve RAP Estimate: 5.00 mmHg TR Peak Gr.: 27.79 mmHg RVSP: 32.79 mmHg PA Pressure: 32.79 mmHg Left Ventricle The left ventricle is normal size. There is normal LV segmental wall motion. Moderate concentric left ventricular hypertrophy. Left ventricular systolic function is normal. The left ventricular ejection fraction is within the normal range. LVEF is 60-65%. Transmitral Doppler flow pattern suggests restrictive physiology. Right Ventricle The right ventricle is normal size. The right ventricular systolic function is normal. Atria The left atrium size is normal. The right atrium size is normal. Aortic Valve The aortic valve is normal in structure. No aortic regurgitation is present. There is no aortic valvular stenosis. Mitral Valve The mitral valve is normal in structure. Trace mitral regurgitation. No evidence of mitral valve stenosis. Tricuspid Valve The tricuspid valve is normal in structure. Mild [place] [address] 2 D/M-MODE ECHOCARDIOGRAM Name: HELENANITA Room: [facility]#: [id number] Admission: 10/17/20 Attend Phys: Ran De Snatiago, Discharge: Date of : 58 Date of Service: 10/18/20 1146 Report #: [id number] Pulmonic Valve The pulmonary valve is normal in structure. Mild pulmonic regurgitation. Great Vessels The aortic root is normal in size. IVC is normal in size and collapses >50% with inspiration. Pericardium There is no pericardial effusion. <Conclusion> LVEF is 60-65%. Moderate concentric left ventricular hypertrophy. Transmitral Doppler flow pattern suggests restrictive physiology. <ELECTRONICALLY SIGNED> By: Ran De Santiago MD, FACC 10/18/20 1146 1146 1146 Ran De Santiago MD, FACC /INF
== END ==
LOC: M.CRD 08:18
PROVIDERS: ATTEND Internal Medicine Cardiovascular Disease
DX: I07.1 Rheumatic tricuspid insufficiency (principal); I11.9 Hypertensive heart disease without heart failure

== ENCOUNTER → 2020-10-25 | Outpatient (CLI) | payer OTHER ==
[2020-10-25 08:28] LABS: CALCIUM 8.7 mg/dL (8.5-10.1)
== END | disposition home or self-care (01) ==
LOC: M.LAB 07:58
PROVIDERS: ATTEND Internal Medicine Nephrology
DX: N18.31 Chronic kidney disease, stage 3a (principal)

== ENCOUNTER → 2021-02-05 | Outpatient (CLI) | payer OTHER ==
[~2021-02-05] MED LIST changes: +HYDROCHLOROTH12.5 M2 PO; +KLOR-CON M2020 MEQ PO; +LASIX 40 MG TAB40 MG PO
== END ==
LOC: M.PC 12:09
PROVIDERS: ATTEND Anesthesiology Pain Medicine
DX: M54.12 Radiculopathy, cervical region (principal); E11.9 Type 2 diabetes mellitus without complications; I11.0 Hypertensive heart disease with heart failure; I50.32 Chronic diastolic (congestive) heart failure; Z79.891 Long term (current) use of opiate analgesic; Z79.899 Other long term (current) drug therapy

== ENCOUNTER → 2021-03-07 | Outpatient (CLI) | payer OTHER ==
[2021-03-07 08:01] LABS: HEMATOCRIT 39.6 % (42.0-52.0); HEMOGLOBIN 12.9 gm/dL (14.0-18.0); MCH 26.4 pg (26.0-34.0); MCHC 32.6 g/dL (28.0-37.0); MCV 80.9 fL (80.0-100.0); MPV 9.3 fl. (7.2-11.1); RBC 4.9 mil/uL (4.50-6.00); RDW-CV 13.7 % (10.5-14.5); WBC 5.9 thou/uL (4.0-11.0)
[2021-03-07 08:14] LABS: ALBUMIN 3.8 g/dL (3.4-5.0); CALCIUM 8.8 mg/dL (8.5-10.1); CREATININE 1.9 mg/dL (0.6-1.3); PHOSPHORUS* 4.1 mg/dL (2.5-4.9); POTASSIUM 3.8 mmol/L (3.5-5.1)
[2021-03-07 08:55] LABS: URINE BILIRUBIN NEGATIVE (Negative); URINE BLOOD TRACE (Negative); URINE CLARITY CLEAR; URINE COLOR YELLOW; URINE GLUCOSE-RANDOM 3+ (Negative); URINE KETONES NEGATIVE (Negative); URINE LEUKOCYTES-REFLEX NEGATIVE (Negative); URINE NITRITE-REFLEX NEGATIVE (Negative); URINE PROTEIN 1+ (Negative); URINE SPECIFIC GRAVITY 1.015 (1.005-1.030); URINE UROBILINOGEN 0.2 E.U./dl (0.2-1.0)
[2021-03-08 02:06] LABS: GLYCOHEMOGLOBIN (HGB A1C) 12.5 % (4.8-5.6)
== END ==
LOC: M.LAB 07:37
PROVIDERS: ATTEND Internal Medicine Nephrology
DX: E11.22 Type 2 diabetes mellitus with diabetic chronic kidney disease (principal); N18.32 Chronic kidney disease, stage 3b

== ENCOUNTER → 2021-03-29 | Outpatient (CLI) | payer OTHER ==
[2021-03-29 08:05] LABS: ALBUMIN 3.9 g/dL (3.4-5.0); ALKALINE PHOSPHATASE 92 U/L (46-116); ANION GAP 9 mmol/L (7-16); BUN 70 mg/dL (7-18); CALCIUM 8.7 mg/dL (8.5-10.1); CHLORIDE 103 mmol/L (98-107); CO2 28 mmol/L (21-32); GLUCOSE 309 mg/dL (70-99); POTASSIUM 3.9 mmol/L (3.5-5.1); SGOT 25 U/L (15-37); SGPT 38 U/L (30-65); SODIUM 140 mmol/L (136-145); TOTAL BILIRUBIN 0.3 mg/dL (<0.1-1.0); TOTAL PROTEIN 7.5 g/dL (6.4-8.2)
[2021-03-29 08:44] LABS: CHOLESTEROL 152 mg/dL (<200); HDL CHOLESTEROL 49 mg/dL (>40); LDL CHOLESTEROL 89 mg/dL (<100); SERUM ASSESSMENT Clear; TC:HDL 3.1 Ratio (Not establshd); TRIGLYCERIDE 71 mg/dL (<150); VLDL 14 mg/dL (<40)
== END ==
LOC: M.LAB 07:19
PROVIDERS: ATTEND Internal Medicine Endocrinology, Diabetes & Metabolism
DX: E11.40 Type 2 diabetes mellitus with diabetic neuropathy, unspecified (principal); E78.5 Hyperlipidemia, unspecified

== ENCOUNTER → 2021-04-02 | Outpatient (CLI) | payer OTHER | LOC: M.PC 07:59 | PROVIDERS: ATTEND Anesthesiology Pain Medicine | DX: M54.12 Radiculopathy, cervical region (principal); M25.512 Pain in left shoulder; E11.9 Type 2 diabetes mellitus without complications; I11.0 Hypertensive heart disease with heart failure; I50.32 Chronic diastolic (congestive) heart failure; Z79.899 Other long term (current) drug therapy; Z79.82 Long term (current) use of aspirin; Z79.4 Long term (current) use of insulin; Z88.8 Allergy status to other drugs, medicaments and biological substances ==

== ENCOUNTER → 2021-05-28 | Outpatient (CLI) | payer OTHER | LOC: M.PC 08:00 | PROVIDERS: ATTEND Anesthesiology Pain Medicine | DX: M54.12 Radiculopathy, cervical region (principal); R03.0 Elevated blood-pressure reading, without diagnosis of hypertension; I50.9 Heart failure, unspecified; E11.9 Type 2 diabetes mellitus without complications; I11.0 Hypertensive heart disease with heart failure ==

== ENCOUNTER → 2021-07-23 | Outpatient (CLI) | payer OTHER | LOC: M.PC 08:40 | PROVIDERS: ATTEND Anesthesiology Pain Medicine | DX: M54.12 Radiculopathy, cervical region (principal); I11.0 Hypertensive heart disease with heart failure; I50.32 Chronic diastolic (congestive) heart failure; E11.9 Type 2 diabetes mellitus without complications; Z88.8 Allergy status to other drugs, medicaments and biological substances; Z79.82 Long term (current) use of aspirin; Z79.4 Long term (current) use of insulin; Z79.899 Other long term (current) drug therapy ==